=== PATIENT | male | born 1955 | race African-American/Black ===

== ENCOUNTER 2017-03-10 14:22 | Inpatient (IN) | payer OTHER ==
[2017-03-10 16:36] VITALS: BMI 25.0
--- NOTE | 2017-03-10 19:45 | HP ---
CIWA Score - CIWA Score Nausea/Vomitin Muscle Tremors: 4-Moderate,w/Arms Extend Anxiety: 4-Mod. Anxious/Guarded Agitation: 4-Moderately Restless Paroxysmal Sweats: 1-Minimal Palms Moist Orientation: 0-Oriented Tacttile Disturbances: 0-None Auditory Disturbances: 0-None Visual Disturbances: 0-None Headache: 0-None Present CIWA-Ar Total Score: 15 Admission ROS BHS - HPI Chief Complaint: withdrawal sx Allergies/Adverse Reactions: Allergies Allergy/AdvReac Type Severity Reaction Status Date / Time Penicillins Allergy Intermediate Verified 03/10/17 18:13 History of Present Illness: 61 years old male with long history of alcohol nicotine dependence has hypertension diabetes ii asthma gerd positive ppd neuropathy denies mental illness is admitted to detox Exam Limitations: No Limitations - Ebola screening Have you traveled outside of the country in the last 21 days: No Have you had contact with anyone from an Ebola affected area: No Have you been sick,other than usual withdrawal symptoms: No Do you have a fever: No - Review of Systems Constitutional: Changes in sleep, Weight Stable EENT: reports: Blurred Vision (reading eye glasses), Dental Problems (upper and lower denture) Respiratory: reports: SOB with Exertion, Productive cough (white thick) Cardiac: reports: No Symptoms Reported GI: reports: Nausea, Poor Fluid Intake, Indigestion, Abdominal cramping : reports: No Symptoms Reported Musculoskeletal: reports: No Symptoms Reported Integumentary: reports: No Symptoms Reported Neuro: reports: Tremors Endocrine: reports: No Symptoms Reported Hematology: reports: No Symptoms Reported Psychiatric: reports: Judgement Intact Other Systems: Reviewed and Negative Patient History - Patient Medical History Hx Anemia: No Hx Asthma: Yes Hx Chronic Obstructive Pulmonary Disease (COPD): Yes Hx Cancer: No Hx Cardiac Disorders: No Hx Congestive Heart Failure: No Hx Hypertension: Yes Hx Hypercholesterolemia: No Hx Pacemaker: No HX Cerebrovascular Accident: No Hx Seizures: No Hx Dementia: No Hx Diabetes: Yes Hx Gastrointestinal Disorders: Yes (acid reflux) Hx Liver Disease: No Hx Genitourinary Disorders: No Hx Sexually Transmitted Disorders: No Hx Renal Disease (ESRD): No Hx Thyroid Disease: No Hx Human Immunodeficiency Virus (HIV): No (07/22 LAST NEGATIVE) Hx Hepatitis C: Yes Hx Depression: No Hx Suicide Attempt: No Hx Bipolar Disorder: No Hx Schizophrenia: No - Patient Surgical History Past Surgical History: Yes Hx Neurologic Surgery: No Hx Cataract Extraction: No Hx Cardiac Surgery: No Hx Lung Surgery: No Hx Breast Surgery: No Hx Breast Biopsy: No Hx Abdominal Surgery: No Hx Appendectomy: No Hx Cholecystectomy: No Hx Genitourinary Surgery: No Hx Orthopedic Surgery: No Other Surgical History: right inguinal hernia repair Anesthesia Reaction: No - PPD History Previous Implant?: Yes Documented Results: Positive w/o proof Implanted On Prior [facility] Admission?: No PPD to be Administered?: No - Smoking Cessation Smoking history: Current every day smoker Have you smoked in the past 12 months: Yes Aproximately how many cigarettes per day: 10 Hx Chewing Tobacco Use: No Initiated information on smoking cessation: No 'Breaking Loose' booklet given: 03/10/17 - Substance & Tx. History Hx Alcohol Use: Yes Hx Substance Use: No Substance Use Type: Alcohol Hx Substance Use Treatment: Yes (05/08-05/13/16 [facility] - Substances Abused Alcohol Route: Oral Frequency: Daily Amount used: LIQUOR- 3 PINTS Age of first use: 20 Date of Last Use: 03/10/17 Family Disease History - Family Disease History Family Disease History: Diabetes: Mother (), Heart Disease: Mother, Other: Father (/killed), Mother Other Family History: only child Admission Physical Exam S - Vital Signs Vital Signs: Vital Signs - 24 hr 03/10/17 16:35 Temperature 97 F L Pulse Rate 101 H Respiratory 20 Rate Blood Pressure 139/86 - Physical General Appearance: Yes: Appropriately Dressed, Mild Distress, Alcohol on Breath , Tremorous, Irritable, Sweating, Anxious HEENTM: Yes: Hearing grossly Normal, Normal ENT Inspection, Normocephalic, Normal Voice Respiratory: Yes: Chest Non-Tender, No Respiratory Distress, No Accessory Muscle Use, Wheezing, Hyperresonant Neck: Yes: Supple, Trachea in good position Breast: Yes: Breasts Symetrical Cardiology: Yes: Regular Rhythm, S1, S2, Tachycardia Abdominal: Yes: Non Tender, Soft Genitourinary: Yes: Within Normal Limits Back: Yes: Normal Inspection Musculoskeletal: Yes: full range of Motion, Gait Steady, Muscle Pain (legs) Extremities: Yes: Normal Inspection, Normal Range of Motion, Non-Tender, Tremors Neurological: Yes: Alert, Motor Strength 5/5, Normal Mood/Affect, Normal Response Integumentary: Yes: Warm Lymphatic: Yes: Within Normal Limits - Diagnostic (1) Alcohol dependence with uncomplicated withdrawal Current Visit: Yes Status: Acute (2) Asthma Current Visit: Yes Status: Chronic Qualifiers: Asthma severity: moderate Asthma complication type: with status asthmaticus Qualified Code(s): - (3) HTN (hypertension) Current Visit: Yes Status: Chronic Qualifiers: Hypertension type: essential hypertension Qualified Code(s): I10 - Essential (primary) hypertension; I10 - Essential (primary) hypertension; I10 - Essential (primary) hypertension (4) Hepatitis C Current Visit: Yes Status: Resolved Qualifiers: Viral hepatitis chronicity: chronic Hepatic coma status: without hepatic coma Qualified Code(s): B18.2 - Chronic viral hepatitis C; B18.2 - Chronic viral hepatitis C; B18.2 - Chronic viral hepatitis C; B18.2 - Chronic viral hepatitis C (5) Nicotine dependence Current Visit: Yes Status: Acute Qualifiers: Nicotine product type: cigarettes Substance use status: in withdrawal Qualified Code(s): F17.213 - Nicotine dependence, cigarettes, with withdrawal; F17.213 - Nicotine dependence, cigarettes, with withdrawal (6) GERD (gastroesophageal reflux disease) Current Visit: Yes Status: Chronic Qualifiers: Esophagitis presence: without esophagitis Qualified Code(s): K21.9 - Gastro-esophageal reflux disease without esophagitis; K21.9 - Gastro- esophageal reflux disease without esophagitis; K21.9 - Gastro-esophageal reflux disease without esophagitis (7) COPD (chronic obstructive pulmonary disease) Current Visit: Yes Status: Chronic Qualifiers: COPD type: emphysema Emphysema type: unilateral Qualified Code(s ): J43.0 - Unilateral pulmonary emphysema [MacLeod's syndrome]; J43.0 - Unilateral pulmonary emphysema [MacLeod's syndrome]; J43.0 - Unilateral pulmonary emphysema [MacLeod's syndrome]; J43.0 - Unilateral pulmonary emphysema [MacLeod's syndrome] (8) Positive PPD, treated Current Visit: Yes Status: Resolved Cleared for Admission BHS - Detox or Rehab BHS Level of Care: Medically Managed Detox Regimen/Protocol: Valium BHS Breath Alcohol Content Breath Alcohol Content: 0.171 Urine Drug Screen - Results Drug Screen Negative: Yes
[2017-03-10] MEDS ORDERED: guaiFENesin/D-METHORPHAN HB 10 ML UNIT-DOSE CUPS PO PRN (19:54)
[2017-03-10] MEDS ORDERED: LOPERAMIDE HCL 2 MG CAPSULE PO PRN (19:54)
[2017-03-10] MEDS ORDERED: diphenhydrAMINE HCL 50 MG CAPSULE PO PRN (19:54)
[2017-03-10] MEDS ORDERED: MENTHOL/PHENOL 1 EACH UD MM PRN (19:54)
[2017-03-10] MEDS ORDERED: diazePAM 5 MG TABLET PO ONE (19:54)
[2017-03-10] MEDS ORDERED: P-EPHED 60MG/TRIPROLIDI 2.5MG TABLET PO PRN (19:54)
[2017-03-10] MEDS ORDERED: MAGNESIUM CITRATE 300 ML BOTTLE PO PRN (19:54)
[2017-03-10] MEDS ORDERED: ACETAMINOPHEN 325 MG TABLET (FP) PO PRN (19:54)
[2017-03-10] MEDS ORDERED: MAGNESIUM HYDROX 2400MG/30ML ORAL SUSPENSION 30 ML CUP PO PRN (19:54)
[2017-03-10] MEDS ORDERED: ALBUTEROL SO4 2.5/IPRATROPIUM 0.5 INH SOL 3 ML VIAL.NEB. NEB PRN (19:55)
[2017-03-10] MEDS ORDERED: GABAPENTIN 300 MG CAPSULE (FP) PO SCH (22:00)
[2017-03-10] MEDS: BUDESONIDE/FORMETEROL FUMARATE 80/4.5 mcg INHALER IH SCH (23:01)
[2017-03-10] MEDS: GABAPENTIN 400 MG CAPSULE (FP) PO SCH (23:06)
[2017-03-10] MEDS: THIAMINE HCL 100 MG TABLET (FP) PO SCH (23:07)
[2017-03-10] MEDS: diazePAM 5 MG TABLET PO SCH (23:07)
[2017-03-10] MEDS: RANITIDINE HCL 150 MG TABLET (FP) PO SCH (23:08)
[2017-03-11] LABS: URINE APPEARANCE SLCLOUDY; URINE BILIRUBIN NEGATIVE (NEGATIVE); URINE BLOOD NEGATIVE (NEGATIVE); URINE COLOR AMBER; URINE GLUCOSE (UA) NEGATIVE (NEGATIVE); URINE KETONE NEGATIVE (NEGATIVE); URINE LEUK ESTERASE NEGATIVE (NEGATIVE); URINE NITRITE NEGATIVE (NEGATIVE); URINE PROTEIN 1+ (NEGATIVE); URINE UROBILINOGEN 4.0 E.U/dl mg/dL (0.2-1.0)
[2017-03-11 00:02] LABS: URINE RBC 1 /hpf (0-3); URINE WBC 1 /hpf (3-5)
[2017-03-11] MEDS: diazePAM 5 MG TABLET PO SCH ×3 (05:51→22:29)
[2017-03-11 10:12] LABS: MCH 23.9 pg (25.7-33.7); MCHC 30.2 g/dl (32.0-35.9); MEAN CELL VOLUME 79.1 fl (80-96); MEAN PLT VOLUME 9.4 fl (7.5-11.1); PLATELET COUNT 215 K/MM3 (134-434); WHITE BLOOD COUNT 4.7 K/mm3 (4.0-10.0)
[2017-03-11] MEDS: PRENATAL VITAMINS W/ FOLIC ACID TABLET (FP) PO SCH (10:12)
[2017-03-11] MEDS: RANITIDINE HCL 150 MG TABLET (FP) PO SCH ×2 (10:12→22:29)
[2017-03-11] MEDS: BUDESONIDE/FORMETEROL FUMARATE 80/4.5 mcg INHALER IH SCH ×2 (10:12→23:03)
[2017-03-11] MEDS: amLODIPine BESYLATE 5 MG TABLET (FP) PO SCH (10:12)
[2017-03-11] MEDS: ASPIRIN 81 MG CHEWABLE TABLETS PO SCH (10:12)
[2017-03-11] MEDS: LISINOPRIL 10 MG TABLET (FP) PO SCH (10:12)
[2017-03-11] MEDS: NICOTINE 14 MG/24 HOURS TOPICAL PATCH TD SCH (10:13)
[2017-03-11] MEDS: NICOTINE POLACRILEX 2 MG GUM BC PRN ×3 (10:16→18:16)
[2017-03-11] MEDS: diazePAM 5 MG TABLET PO PRN ×2 (10:17→15:13)
--- NOTE | 2017-03-11 10:27 | PN ---
S CIWA - CIWA Score Nausea/Vomitin-No Nausea/No Vomiting Muscle Tremors: 4-Moderate,w/Arms Extend Anxiety: 3 Agitation: 3 Paroxysmal Sweats: 3 Orientation: 0-Oriented Tacttile Disturbances: 0-None Auditory Disturbances: 0-None Visual Disturbances: 0-None Headache: 0-None Present CIWA-Ar Total Score: 13 BHS Progress Note (SOAP) Subjective: sweats interrupted sleep agitation mild shakes Objective: 03/11/17 10:26 Vital Signs Temperature 97.9 F 03/11/17 06:35 Pulse Rate 94 H 03/11/17 06:35 Respiratory Rate 20 03/11/17 06:35 Blood Pressure 160/93 03/11/17 06:35 O2 Sat by Pulse Oximetry (%) Laboratory Tests 03/10/17 03/10/17 03/11/17 18:19 23:45 05:53 WBC RBC Hgb Hct MCV MCH MCHC RDW Plt Count MPV POC Glucometer 111 128 Urine Color Alyson Urine Appearance Slcloudy Urine pH 6.0 Ur Specific [place] 1.015 Urine Protein 1+ H Urine Glucose (UA) Negative Urine Ketones Negative Urine Blood Negative Urine Nitrite Negative Urine Bilirubin Negative Urine Urobilinogen 4.0 e.u/dl Urine RBC 1 Urine WBC 1 Ur Epithelial Cells Rare 03/11/17 07:00 WBC 4.7 D RBC 3.86 L Hgb 9.2 L D Hct 30.5 L MCV 79.1 L MCH 23.9 L MCHC 30.2 L RDW 25.0 H D Plt Count 215 D MPV 9.4 POC Glucometer Urine Color Urine Appearance Urine pH Ur Specific [place] Urine Protein Urine Glucose (UA) Urine Ketones Urine Blood Urine Nitrite Urine Bilirubin Urine Urobilinogen Urine RBC Urine WBC Ur Epithelial Cells labs pending aaox3 ambulating no acute distress low H:H; iron sulfate tid ordered Assessment: 03/11/17 10:35 withdrawal sx Plan: continue detox increase fluids iron sulfated ordered
[2017-03-11 11:07] LABS: ALBUMIN 3.6 g/dl (3.4-5.0); ALK PHOS 128 U/L (45-117); ANION GAP 8 (8-16); BILIRUBIN,TOTAL 0.8 mg/dL (0.2-1.0); CO2 26 mmol/L (21-32); CREATININE 1.1 mg/dL (0.7-1.3); GLUCOSE,RANDOM 212 mg/dL (74-106); SGOT/AST 192 U/L (15-37); SGPT/ALT 197 U/L (12-78); TOT PROT 7.6 g/dl (6.4-8.2)
[2017-03-11 11:49] LABS: HIV 1 & 2 AB NEGATIVE; HIV 1 AGp24 NEGATIVE
[2017-03-11] MEDS: FERROUS SO4 325 MG TABLET (FP) PO SCH ×2 (12:51→18:16)
--- NOTE | 2017-03-11 14:21 | EKG ---
Test Reason : Blood Pressure : / mmHG Vent. Rate : 090 BPM Atrial Rate : 090 BPM P-R Int : 158 ms QRS Dur : 084 ms QT Int : 392 ms P-R-T Axes : 062 -16 034 degrees QTc Int : 479 ms NORMAL SINUS RHYTHM POSSIBLE LEFT ATRIAL ENLARGEMENT BORDERLINE ECG NO PREVIOUS ECGS AVAILABLE Confirmed by YANDEL EVANS, CHERELLE ([id number]) on 03/11/2017 2:21:16 PM Referred By: Carmelo Deleon Confirmed By:CHERELLE HUMPHRIES MD
[2017-03-11] MEDS: GABAPENTIN 400 MG CAPSULE (FP) PO SCH (22:28)
[2017-03-11] MEDS: THIAMINE HCL 100 MG TABLET (FP) PO SCH (22:29)
[2017-03-12] MEDS: diazePAM 5 MG TABLET PO PRN ×3 (05:12→17:49)
[2017-03-12] MEDS: NICOTINE POLACRILEX 2 MG GUM BC PRN ×5 (05:13→17:48)
[2017-03-12] MEDS: metFORMIN HCL 500 MG TABLET (FP) PO SCH ×2 (07:40→17:48)
[2017-03-12] MEDS: FERROUS SO4 325 MG TABLET (FP) PO SCH ×3 (07:41→17:48)
[2017-03-12] MEDS ORDERED: valACYclovir HCL 1000 MG TABLET PO SCH (10:00)
[2017-03-12] MEDS: RANITIDINE HCL 150 MG TABLET (FP) PO SCH ×2 (10:04→22:21)
[2017-03-12] MEDS: LISINOPRIL 10 MG TABLET (FP) PO SCH (10:04)
[2017-03-12] MEDS: PRENATAL VITAMINS W/ FOLIC ACID TABLET (FP) PO SCH (10:04)
[2017-03-12] MEDS: amLODIPine BESYLATE 5 MG TABLET (FP) PO SCH (10:04)
[2017-03-12] MEDS: ASPIRIN 81 MG CHEWABLE TABLETS PO SCH (10:04)
[2017-03-12] MEDS: diazePAM 5 MG TABLET PO SCH ×2 (10:04→22:21)
[2017-03-12] MEDS: BUDESONIDE/FORMETEROL FUMARATE 80/4.5 mcg INHALER IH SCH ×2 (10:05→23:39)
[2017-03-12] MEDS: valACYclovir HCL 500 MG TABLET (FP) PO SCH ×2 (10:05→22:21)
[2017-03-12] MEDS: NICOTINE 14 MG/24 HOURS TOPICAL PATCH TD SCH (10:06)
[2017-03-12] MEDS: ALBUTEROL SO4 18 GM HFA INHALER IH PRN (10:08)
--- NOTE | 2017-03-12 11:26 | PN ---
[facility] CIWA - CIWA Score Nausea/Vomitin-No Nausea/No Vomiting Muscle Tremors: 3 Anxiety: 2 Agitation: 3 Paroxysmal Sweats: 3 Orientation: 0-Oriented Tacttile Disturbances: 0-None Auditory Disturbances: 0-None Visual Disturbances: 0-None Headache: 0-None Present CIWA-Ar Total Score: 11 [facility] Progress Note (SOAP) Subjective: cold sore on lip sweats interrupted sleep Objective: 03/12/17 11:23 Vital Signs Temperature 98.6 F 03/12/17 10:00 Pulse Rate 93 H 03/12/17 10:00 Respiratory Rate 18 03/12/17 10:00 Blood Pressure 128/82 03/12/17 10:00 O2 Sat by Pulse Oximetry (%) Laboratory Tests 03/10/17 03/10/17 03/11/17 18:19 23:45 05:53 WBC RBC Hgb Hct MCV MCH MCHC RDW Plt Count MPV Sodium Potassium Chloride Carbon Dioxide Anion Gap BUN Creatinine Creat Clearance w eGFR POC Glucometer 111 128 Random Glucose Calcium Total Bilirubin AST ALT Alkaline Phosphatase Total Protein Albumin Urine Color Alyson Urine Appearance Slcloudy Urine pH 6.0 Ur Specific [place] 1.015 Urine Protein 1+ H Urine Glucose (UA) Negative Urine Ketones Negative Urine Blood Negative Urine Nitrite Negative Urine Bilirubin Negative Urine Urobilinogen 4.0 e.u/dl Urine RBC 1 Urine WBC 1 Ur Epithelial Cells Rare RPR Titer HIV 1&2 Antibody Screen HIV P24 Antigen 03/11/17 03/11/17 03/11/17 07:00 07:00 07:00 WBC 4.7 D RBC 3.86 L Hgb 9.2 L D Hct 30.5 L MCV 79.1 L MCH 23.9 L MCHC 30.2 L RDW 25.0 H D Plt Count 215 D MPV 9.4 Sodium 139 Potassium 4.0 Chloride 105 Carbon Dioxide 26 Anion Gap 8 BUN 9 D Creatinine 1.1 Creat Clearance w eGFR > 60 POC Glucometer Random Glucose 212 H D Calcium 9.0 Total Bilirubin 0.8 AST 192 H D ALT 197 H D Alkaline Phosphatase 128 H D Total Protein 7.6 Albumin 3.6 Urine Color Urine Appearance Urine pH Ur Specific [place] Urine Protein Urine Glucose (UA) Urine Ketones Urine Blood Urine Nitrite Urine Bilirubin Urine Urobilinogen Urine RBC Urine WBC Ur Epithelial Cells RPR Titer HIV 1&2 Antibody Screen Negative HIV P24 Antigen Negative 03/11/17 03/11/17 03/12/17 07:00 16:42 07:28 WBC RBC Hgb Hct MCV MCH MCHC RDW Plt Count MPV Sodium Potassium Chloride Carbon Dioxide Anion Gap BUN Creatinine Creat Clearance w eGFR POC Glucometer 159 213 Random Glucose Calcium Total Bilirubin AST ALT Alkaline Phosphatase Total Protein Albumin Urine Color Urine Appearance Urine pH Ur Specific [place] Urine Protein Urine Glucose (UA) Urine Ketones Urine Blood Urine Nitrite Urine Bilirubin Urine Urobilinogen Urine RBC Urine WBC Ur Epithelial Cells RPR Titer Nonreactive HIV 1&2 Antibody Screen HIV P24 Antigen AAOx3 ambulating no acute distress Assessment: 03/12/17 11:24 withdrawal sx Plan: continue detox increase fluids valcyte 500mg bid x 7 days
--- NOTE | 2017-03-12 17:35 | CONSULT ---
[facility] Psychiatric Consult - Data Date of interview: 03/12/17 Admission source: [facility] Identifying data: Patient refuses psychiatric evaluation.Nursing staff is made aware.
[2017-03-12] MEDS: MAG HYDROX/AL HYDROX/SIMETH 30 ML UNIT-DOSE CUP PO PRN (21:00)
[2017-03-12] MEDS: THIAMINE HCL 100 MG TABLET (FP) PO SCH (22:20)
[2017-03-12] MEDS: GABAPENTIN 400 MG CAPSULE (FP) PO SCH (22:21)
[2017-03-13] MEDS: NICOTINE POLACRILEX 2 MG GUM BC PRN ×4 (02:36→22:36)
[2017-03-13] MEDS: diazePAM 5 MG TABLET PO PRN ×3 (02:43→16:56)
[2017-03-13] MEDS: MAG HYDROX/AL HYDROX/SIMETH 30 ML UNIT-DOSE CUP PO PRN ×3 (05:54→18:44)
[2017-03-13] MEDS: ALBUTEROL SO4 18 GM HFA INHALER IH PRN ×2 (05:55→22:35)
[2017-03-13] MEDS: metFORMIN HCL 500 MG TABLET (FP) PO SCH ×2 (07:56→16:56)
[2017-03-13] MEDS: FERROUS SO4 325 MG TABLET (FP) PO SCH ×3 (07:56→16:56)
[2017-03-13] MEDS: diazePAM 5 MG TABLET PO SCH ×2 (10:16→22:35)
[2017-03-13] MEDS: PRENATAL VITAMINS W/ FOLIC ACID TABLET (FP) PO SCH (10:16)
[2017-03-13] MEDS: BUDESONIDE/FORMETEROL FUMARATE 80/4.5 mcg INHALER IH SCH ×2 (10:16→22:35)
[2017-03-13] MEDS: amLODIPine BESYLATE 5 MG TABLET (FP) PO SCH (10:16)
[2017-03-13] MEDS: valACYclovir HCL 500 MG TABLET (FP) PO SCH ×2 (10:16→22:35)
[2017-03-13] MEDS: LISINOPRIL 10 MG TABLET (FP) PO SCH ×2 (10:16→22:35)
[2017-03-13] MEDS: ASPIRIN 81 MG CHEWABLE TABLETS PO SCH (10:16)
[2017-03-13] MEDS: RANITIDINE HCL 150 MG TABLET (FP) PO SCH ×2 (10:16→22:35)
[2017-03-13] MEDS: NICOTINE 14 MG/24 HOURS TOPICAL PATCH TD SCH (10:18)
--- NOTE | 2017-03-13 11:04 | PN ---
BHS Progress Note (SOAP) Subjective: Sweating,interrupted sleep,restless. Pt. is concerned about elevated BP, we'll increase lisinopril to bid Objective: 03/13/17 11:02 Vital Signs - 8 hr 03/13/17 03/13/17 06:00 10:00 Temperature 97.7 F 98.2 F Pulse Rate 95 H 99 H Respiratory 18 18 Rate Blood Pressure 138/87 141/75 Laboratory Last Values WBC 4.7 K/mm3 (4.0-10.0) D 03/11/17 07:00 RBC 3.86 M/mm3 (4.00-5.60) L 03/11/17 07:00 Hgb 9.2 GM/dL (11.7-16.9) L D 03/11/17 07:00 Hct 30.5 % (35.4-49) L 03/11/17 07:00 MCV 79.1 fl (80-96) L 03/11/17 07:00 MCH 23.9 pg (25.7-33.7) L 03/11/17 07:00 MCHC 30.2 g/dl (32.0-35.9) L 03/11/17 07:00 RDW 25.0 % (11.9-15.9) H D 03/11/17 07:00 Plt Count 215 K/MM3 (134-434) D 03/11/17 07:00 MPV 9.4 fl (7.5-11.1) 03/11/17 07:00 Sodium 139 mmol/L (136-145) 03/11/17 07:00 Potassium 4.0 mmol/L (3.5-5.1) 03/11/17 07:00 Chloride 105 mmol/L (98-107) 03/11/17 07:00 Carbon Dioxide 26 mmol/L (21-32) 03/11/17 07:00 Anion Gap 8 (8-16) 03/11/17 07:00 BUN 9 mg/dL (7-18) D 03/11/17 07:00 Creatinine 1.1 mg/dL (0.7-1.3) 03/11/17 07:00 Creat Clearance w eGFR > 60 (>60) 03/11/17 07:00 POC Glucometer 108 UNITS (()) 03/13/17 05:44 Random Glucose 212 mg/dL (74-106) H D 03/11/17 07:00 Calcium 9.0 mg/dL (8.5-10.1) 03/11/17 07:00 Total Bilirubin 0.8 mg/dL (0.2-1.0) 03/11/17 07:00 AST 192 U/L (15-37) H D 03/11/17 07:00 ALT 197 U/L (12-78) H D 03/11/17 07:00 Alkaline Phosphatase 128 U/L (45-117) H D 03/11/17 07:00 Total Protein 7.6 g/dl (6.4-8.2) 03/11/17 07:00 Albumin 3.6 g/dl (3.4-5.0) 03/11/17 07:00 Urine Color Alyson 03/10/17 23:45 Urine Appearance Slcloudy 03/10/17 23:45 Urine pH 6.0 (5.0-8.0) 03/10/17 23:45 Ur Specific [place] 1.015 (1.005-1.025) 03/10/17 23:45 Urine Protein 1+ (NEGATIVE) H 03/10/17 23:45 Urine Glucose (UA) Negative (NEGATIVE) 03/10/17 23:45 Urine Ketones Negative (NEGATIVE) 03/10/17 23:45 Urine Blood Negative (NEGATIVE) 03/10/17 23:45 Urine Nitrite Negative (NEGATIVE) 03/10/17 23:45 Urine Bilirubin Negative (NEGATIVE) 03/10/17 23:45 Urine Urobilinogen 4.0 e.u/dl mg/dL (0.2-1.0) 03/10/17 23:45 Urine RBC 1 /hpf (0-3) 03/10/17 23:45 Urine WBC 1 /hpf (3-5) 03/10/17 23:45 Ur Epithelial Cells Rare /hpf (FEW) 03/10/17 23:45 RPR Titer Nonreactive (NONREACTIVE) 03/11/17 07:00 HIV 1&2 Antibody Screen Negative 03/11/17 07:00 HIV P24 Antigen Negative 03/11/17 07:00 labs noted,liver enzymes are elevated Assessment: 03/13/17 11:03 Withdrawal sx. Plan: Continue detox
[2017-03-13] MEDS: GABAPENTIN 400 MG CAPSULE (FP) PO SCH (22:35)
[2017-03-13] MEDS: THIAMINE HCL 100 MG TABLET (FP) PO SCH (22:35)
[2017-03-14] MEDS: metFORMIN HCL 500 MG TABLET (FP) PO SCH (07:35)
[2017-03-14] MEDS: FERROUS SO4 325 MG TABLET (FP) PO SCH (07:35)
--- NOTE | 2017-03-14 08:40 | DS ---
[facility] Detox Discharge Summary Admission Date: 03/10/17 Discharge Date: 03/14/17 - History Present History: Alcohol Dependence Additional Comments: FOLLOW UP WITH AFTER CARE PROGRAM ARRANGEMENT PATIENT HAS MEDICATIONS Pertinent Past History: ASTHMA COPD HYPERTENSION HEPATITIS C NICOTINE DEPENDENCE GERD POSITIVE PPD TREATED - Physical Exam Results Vital Signs: Vital Signs Temperature 98.1 F 03/14/17 06:00 Pulse Rate 84 03/14/17 06:00 Respiratory Rate 18 03/14/17 06:00 Blood Pressure 136/81 03/14/17 06:00 O2 Sat by Pulse Oximetry (%) Pertinent Admission Physical Exam Findings: WITHDRAWAL SYMPTOM - Treatment Hospital Course: Detox Protocol Followed, Detoxed Safely, Responded well, Discharged Condition Good, Rehab Referral Accepted Patient has Accepted a Rehab Referral to: [facility] - Medication Discharge Medications: Ambulatory Orders Gabapentin [Neurontin -] 300 mg PO TID 02/10/15 Benztropine Mesylate [Cogentin -] 0.5 mg PO BID #60 tablet 02/11/15 Amlodipine Besylate [Norvasc -] 5 mg PO DAILY #30 tablet 02/14/15 Diphenhydramine [Benadryl Capsule -] 50 mg PO HS #30 capsule 02/14/15 Famotidine 40 mg PO DAILY #30 tablet 02/14/15 Pravastatin Sodium [Pravachol -] 20 mg PO HS #30 tablet 02/14/15 Tamsulosin HCl [Flomax -] 0.4 mg PO HS #30 cap.er.24h 02/14/15 Albuterol Sulfate Inhaler - [Ventolin HFA Inhaler -] 2 inh IH Q4H PRN 05/08/16 Metformin HCl [Glucophage -] 500 mg PO BID 05/08/16 Risperidone [Risperdal -] 4 mg PO HS 05/08/16 - AMA Did Patient Leave Against Medical Advice: No
[2017-03-14] MEDS: amLODIPine BESYLATE 5 MG TABLET (FP) PO SCH (09:02)
[2017-03-14] MEDS: ASPIRIN 81 MG CHEWABLE TABLETS PO SCH (09:02)
[2017-03-14] MEDS: PRENATAL VITAMINS W/ FOLIC ACID TABLET (FP) PO SCH (09:02)
[2017-03-14] MEDS: valACYclovir HCL 500 MG TABLET (FP) PO SCH (09:02)
[2017-03-14] MEDS: RANITIDINE HCL 150 MG TABLET (FP) PO SCH (09:02)
[2017-03-14] MEDS: LISINOPRIL 10 MG TABLET (FP) PO SCH (09:02)
[2017-03-14] MEDS: NICOTINE 14 MG/24 HOURS TOPICAL PATCH TD SCH (09:03)
[2017-03-14] MEDS: BUDESONIDE/FORMETEROL FUMARATE 80/4.5 mcg INHALER IH SCH (09:03)
[2017-03-14] MEDS: MAG HYDROX/AL HYDROX/SIMETH 30 ML UNIT-DOSE CUP PO PRN (09:04)
[2017-03-14 10:00] VITALS: BP 123/76; PULSE 99; TEMP 97.3
[2017-03-14] MEDS ORDERED: diazePAM 5 MG TABLET PO SCH (10:00)
== END 2017-03-14 09:50 | disposition home or self-care (01) | DRG 775 ==
LOC: YASAS 14:22 → Y6N 18:56
PROVIDERS: ADMIT Internal Medicine; ATTEND Internal Medicine
PROC: HZ2ZZZZ Detoxification Services for Substance Abuse Treatment (ICD-10-PCS; principal; 2017-03-10)
DX: F10.230 Alcohol dependence with withdrawal, uncomplicated (principal); F17.210 Nicotine dependence, cigarettes, uncomplicated; F20.0 Paranoid schizophrenia; J45.42 Moderate persistent asthma with status asthmaticus; F43.0 Acute stress reaction; E78.00 Pure hypercholesterolemia, unspecified; E11.9 Type 2 diabetes mellitus without complications; K21.9 Gastro-esophageal reflux disease without esophagitis; I10 Essential (primary) hypertension; B18.2 Chronic viral hepatitis C; R76.11 Nonspecific reaction to tuberculin skin test without active tuberculosis; D50.9 Iron deficiency anemia, unspecified; G47.00 Insomnia, unspecified; Z79.84 Long term (current) use of oral hypoglycemic drugs; Z88.0 Allergy status to penicillin
CPT/HCPCS: 36415; 80053; 81003; 81015; 85027; 86593; 87389; 93005; 93010

== ENCOUNTER 2018-01-23 13:06 | Inpatient (IN) | payer OTHER ==
[2018-01-23 13:55] VITALS: BMI 24.5
--- NOTE | 2018-01-23 14:18 | HP ---
ELINA EVANS Rehab Assess/Revision - Admission History Ad[facility]: [facility] Date of Admission to Rehab: 01/23/18 - Vital signs Vital Signs: Vital Signs Period Temp Pulse Resp BP Sys/Melendez Pulse Ox Last 24 Hr 97.7 F 93 16 134/86 - Findings Detox History & Physical reviewed: Yes Concur with findings: Yes Comments/Additional Findings: for rehab as protocol Inpatient Rehab Admission - Initial Determination Are CD services needed?: Yes Free of communicable disease: Yes Not in need of hospitalization: Yes - Rehab Admission Criteria Previous failed treatment: Yes Poor recovery environment: Yes Comorbidities: Yes Lacks judgement: No Patient is meeting Inpatient Rehab admission criteria:: Yes
[2018-01-23] MEDS ORDERED: P-EPHED 60MG/TRIPROLIDI 2.5MG TABLET PO PRN (14:20)
[2018-01-23] MEDS ORDERED: MENTHOL/PHENOL 1 EACH UD MM PRN (14:20)
[2018-01-23] MEDS ORDERED: ACETAMINOPHEN 325 MG TABLET (FP) PO PRN (14:20)
[2018-01-23] MEDS ORDERED: IBUPROFEN 400 MG TABLET (FP) PO PRN (14:20)
[2018-01-23] MEDS ORDERED: guaiFENesin/D-METHORPHAN HB 10 ML UNIT-DOSE CUPS PO PRN (14:20)
[2018-01-23] MEDS ORDERED: MAGNESIUM HYDROX 2400MG/30ML ORAL SUSPENSION 30 ML CUP PO PRN (14:20)
[2018-01-23] MEDS ORDERED: MAGNESIUM CITRATE 300 ML BOTTLE PO PRN (14:20)
[2018-01-23] MEDS ORDERED: LOPERAMIDE HCL 2 MG CAPSULE PO PRN (14:20)
[2018-01-23] MEDS ORDERED: ALBUTEROL SO4 8 GM HFA INHALER IH PRN (14:22)
[2018-01-23] MEDS: NICOTINE 21 MG/24 HOURS TOPICAL PATCH TD SCH (15:43)
[2018-01-23] MEDS: CYCLOBENZAPRINE HCL 10 MG TABLET (FP) PO PRN (16:53)
[2018-01-23] MEDS: MAG HYDROX/AL HYDROX/SIMETH 30 ML UNIT-DOSE CUP PO PRN (17:12)
--- NOTE | 2018-01-23 17:27 | PN ---
S Progress Note Note: Psychiatric nurse practitioner council on aging director note: Call received by RN requesting patient's medications. Chart reviewed. Will order gabapentin 600mg TID.
[2018-01-23] MEDS ORDERED: glipiZIDE 10 MG TABLET (FP) PO ONE (17:40)
[2018-01-23] MEDS: GABAPENTIN 300 MG CAPSULE (FP) PO SCH (21:17)
[2018-01-23] MEDS: TAMSULOSIN HCL 0.4 MG CAP.ER.24H (FP) PO SCH (21:17)
[2018-01-23] MEDS: THIAMINE HCL 100 MG TABLET (FP) PO SCH (21:18)
[2018-01-23] MEDS: cloNIDine HCL 0.1 MG TABLET PO SCH (21:18)
[2018-01-23] MEDS: ATORVASTATIN CA 40 MG TABLET (FP) PO SCH (21:18)
[2018-01-23] MEDS: BUDESONIDE/FORMETEROL FUMARATE 160/4.5 mcg INHALER IH SCH (21:18)
[2018-01-23] MEDS ORDERED: glipiZIDE 10 MG TABLET (FP) PO SCH (22:00)
[2018-01-24] MEDS: GABAPENTIN 300 MG CAPSULE (FP) PO SCH ×3 (07:59→21:40)
[2018-01-24] MEDS: glipiZIDE 10 MG TABLET (FP) PO SCH ×2 (07:59→17:05)
[2018-01-24] MEDS: MAG HYDROX/AL HYDROX/SIMETH 30 ML UNIT-DOSE CUP PO PRN ×2 (08:04→14:35)
--- NOTE | 2018-01-24 08:26 | HP ---
Psychiatrist Admission - Data Date of interview: 01/24/18 Admission source: [facility] Identifying data: This is the second [facility] for this 62 years old single Black male, unemployed om SSI, homeless Medical History: Significant for bronchial asthma, hypertension, dyslipidemia, type 2 diabetes mellitus, diabetic neuropathy, GERD, hepatitis C, benigh prostatic hyperplasia, history of treatment for syphilis and surgery for right inguinal herniorraphy. Smokes 10 cigarettes daily Psychiatric History: Patient was reluctant to provide information about his psychiatric history. He was recently seen by Dr Diaz on 01/22/18 while in detox. He is diagnosed with Paranoid Schizophrenia and has had history of multiple psychiatric hospitalizations ([facility] and various other facilities ). He is non-compliant with OPD care and medications but in the past he had OPD care at [facility] and was prescribed Risperdal, Cogentin, Celexa. Patient declines to resume psychotropic medications to the exception of Atarax for insomnia. Denies history of suicide attempts. He is very irritable at present Physical/Sexual Abuse/Trauma History: Denies history of emotional, physical or sexual abuse, but reports being bullied as a child by peers in school. Served in the [employer] from to , in [place]; received dishonorable discharge for drinking, drug use, leaving AWOL. Additional Comment: Reports history of multiple previous arrests including one felony conviction Vital Signs: Vital Signs - 24 hr 01/23/18 01/24/18 01/24/18 13:48 00:30 03:30 Temperature 97.7 F Pulse Rate 93 H Respiratory 16 20 18 Rate Blood Pressure 134/86 01/24/18 07:15 Temperature 99.4 F Pulse Rate 98 H Respiratory 18 Rate Blood Pressure 119/78 Allergies/Adverse Reactions: Allergies Allergy/AdvReac Type Severity Reaction Status Date / Time Penicillins Allergy Severe diarrhea Verified 01/19/18 12:31 Date of last physical exam: 01/19/18 Concur with the findings of this exam: Yes - Substance Abuse/Tx History Hx Alcohol Use: Yes Hx Substance Use: No Substance Use Type: Alcohol (Started drinking alcohol at age 15, consumes 4 pints of vodka daily. Last drank on 01/19/18) Hx Substance Use Treatment: Yes (6 previous inpt detox & one inpt rehab @ [facility]) Mental Status Exam - Mental Status Exam Alert and Oriented to: Time, Place, Person Cognitive Function: Fair Patient Appearance: Well Groomed Mood: Irritable Affect: Appropriate Patient Behavior: Cooperative Voice Loudness: Normal Thought Process: Intact Thought Disorder: Not Present Hallucinations: Denies Suicidal Ideation: Denies Homicidal Ideation: Denies Insight/Judgement: Fair Sleep: Poorly Appetite: Poor Muscle strength/Tone: Normal Gait/Station: Normal Psychiatric Findings - Problem List (Procious 1, 2,3) (1) Alcohol dependence Current Visit: Yes Status: Acute (2) Nicotine dependence Current Visit: No Status: Chronic Qualifiers: Nicotine product type: cigarettes Substance use status: in withdrawal Qualified Code(s): F17.213 - Nicotine dependence, cigarettes, with withdrawal (3) Paranoid schizophrenia Current Visit: No Status: Chronic Comment: Refuses to accept medications. (4) Alcohol-induced mood disorder Current Visit: Yes Status: Acute (5) Alcohol-induced sleep disorder Current Visit: Yes Status: Acute (6) Anemia Current Visit: No Status: Chronic Qualifiers: Anemia type: iron deficiency (7) Asthma Current Visit: No Status: Chronic Qualifiers: Asthma severity: moderate Asthma persistence: unspecified Asthma complication type: unspecified Qualified Code(s): J45.909 - Unspecified asthma , uncomplicated (8) COPD (chronic obstructive pulmonary disease) Current Visit: No Status: Chronic Qualifiers: COPD type: emphysema Emphysema type: unilateral Qualified Code(s): J43.0 - Unilateral pulmonary emphysema [MacLeod's syndrome] (9) DM2 (diabetes mellitus, type 2) Current Visit: No Status: Chronic Qualifiers: Diabetes mellitus extermination supervisor insulin use: without snf use Diabetes mellitus complication status: with unspecified complications Qualified Code(s) : E11.8 - Type 2 diabetes mellitus with unspecified complications (10) GERD (gastroesophageal reflux disease) Current Visit: No Status: Chronic Qualifiers: Esophagitis presence: esophagitis presence not specified Qualified Code(s) : K21.9 - Gastro-esophageal reflux disease without esophagitis (11) HTN (hypertension) Current Visit: No Status: Chronic Qualifiers: Hypertension type: essential hypertension Qualified Code(s): I10 - Essential (primary) hypertension (12) Hypercholesterolemia Current Visit: No Status: Chronic - Initial Treatment Plan Initial Treatment Plan: 1) Start Atarax 25 mg po HS. 2) Monitor progress
[2018-01-24] MEDS ORDERED: PANTOPRAZOLE 20 MG TABLET (FP) PO SCH ×2 (10:00→12:56)
[2018-01-24] MEDS: NIFEdipine E.R. 30 MG TABLET (FP) PO SCH (10:24)
[2018-01-24] MEDS: FINASTERIDE 5 MG TABLET (FP) PO SCH (10:24)
[2018-01-24] MEDS: cloNIDine HCL 0.1 MG TABLET PO SCH ×2 (10:25→21:40)
[2018-01-24] MEDS: PRENATAL VITAMINS W/ FOLIC ACID TABLET (FP) PO SCH (10:25)
[2018-01-24] MEDS: ASPIRIN COATED 81 MG TABLET.EC PO SCH (10:25)
[2018-01-24] MEDS: CLOPIDOGREL BISULFATE 75 MG TABLET (FP) PO SCH (10:26)
[2018-01-24] MEDS: NICOTINE POLACRILEX 2 MG GUM BUC PRN ×4 (10:31→21:41)
[2018-01-24] MEDS: NICOTINE 21 MG/24 HOURS TOPICAL PATCH TD SCH (10:31)
[2018-01-24] MEDS: BUDESONIDE/FORMETEROL FUMARATE 160/4.5 mcg INHALER IH SCH ×2 (10:37→21:40)
--- NOTE | 2018-01-24 13:01 | PN ---
[facility] Progress Note Note: Vital Signs Temperature 99.4 F 01/24/18 07:15 Pulse Rate 98 H 01/24/18 07:15 Respiratory Rate 18 01/24/18 07:15 Blood Pressure 119/78 01/24/18 07:15 O2 Sat by Pulse Oximetry (%) patietn evaluated by heavy repairer recommend glucerna 120 PO BID, ordered as per recommendation patient c/o of acid reflux reports protonix 40 mg currently does not relief symptoms. Suggested 20 mg BID, but patient reports better relief one time 20mg protonix for now low acidic diet continue to monitor
[2018-01-24] MEDS ORDERED: PANTOPRAZOLE 20 MG TABLET (FP) PO ONE (13:45)
[2018-01-24] MEDS: ATORVASTATIN CA 40 MG TABLET (FP) PO SCH (21:40)
[2018-01-24] MEDS: THIAMINE HCL 100 MG TABLET (FP) PO SCH (21:40)
[2018-01-24] MEDS: TAMSULOSIN HCL 0.4 MG CAP.ER.24H (FP) PO SCH (21:40)
[2018-01-24] MEDS: CYCLOBENZAPRINE HCL 10 MG TABLET (FP) PO PRN (21:40)
[2018-01-25] MEDS: glipiZIDE 10 MG TABLET (FP) PO SCH ×2 (06:29→17:14)
[2018-01-25] MEDS: GABAPENTIN 300 MG CAPSULE (FP) PO SCH ×3 (06:29→21:54)
[2018-01-25] MEDS: NICOTINE POLACRILEX 2 MG GUM BUC PRN ×5 (06:31→21:58)
[2018-01-25] MEDS ORDERED: PANTOPRAZOLE 20 MG TABLET (FP) PO SCH (10:00)
[2018-01-25] MEDS: CLOPIDOGREL BISULFATE 75 MG TABLET (FP) PO SCH (10:44)
[2018-01-25] MEDS: PRENATAL VITAMINS W/ FOLIC ACID TABLET (FP) PO SCH (10:44)
[2018-01-25] MEDS: ASPIRIN COATED 81 MG TABLET.EC PO SCH (10:44)
[2018-01-25] MEDS: FINASTERIDE 5 MG TABLET (FP) PO SCH (10:44)
[2018-01-25] MEDS: BUDESONIDE/FORMETEROL FUMARATE 160/4.5 mcg INHALER IH SCH ×2 (10:45→21:55)
[2018-01-25] MEDS: cloNIDine HCL 0.1 MG TABLET PO SCH ×2 (10:45→21:54)
[2018-01-25] MEDS: NICOTINE 21 MG/24 HOURS TOPICAL PATCH TD SCH (10:45)
[2018-01-25] MEDS: NIFEdipine E.R. 30 MG TABLET (FP) PO SCH (10:46)
[2018-01-25] MEDS: MAG HYDROX/AL HYDROX/SIMETH 30 ML UNIT-DOSE CUP PO PRN (12:37)
--- NOTE | 2018-01-25 12:56 | PN ---
[facility] Progress Note Note: Vital Signs Temperature 97.8 F 01/25/18 07:07 Pulse Rate 93 H 01/25/18 10:00 Respiratory Rate 18 01/25/18 07:07 Blood Pressure 100/69 01/25/18 10:00 O2 Sat by Pulse Oximetry (%) Laboratory Last Values POC Glucometer 259 UNITS (80-120) 01/25/18 06:28 Patient c/o protonix currently does not work for current GERD meds changed to ranatidine 150mg BID low acidic diet elevated BGM BGM monitoring changed to TID, RN to call provider for elevated BGM increase fluids continue to monitor
--- NOTE | 2018-01-25 17:23 | PN ---
S Progress Note Note: Vital Signs Temperature 97.8 F 01/25/18 07:07 Pulse Rate 93 H 01/25/18 10:00 Respiratory Rate 18 01/25/18 07:07 Blood Pressure 100/69 01/25/18 10:00 O2 Sat by Pulse Oximetry (%) Laboratory Last Values POC Glucometer 259 UNITS (80-120) 01/25/18 06:28 Called received from JITENDRA sanders re: patients BGM 367 at this time. Patient only on oral glypizine. one time dose of novolog 4 units ordered increase fluids continue NCS diet continue to monitor
[2018-01-25] MEDS ORDERED: INSULIN (NOVOLOG) ASPART 100 UNITS/ML 10ML VIAL SQ ONE ×2 (17:45→22:10)
[2018-01-25] MEDS: THIAMINE HCL 100 MG TABLET (FP) PO SCH (21:54)
[2018-01-25] MEDS: RANITIDINE HCL 150 MG TABLET (FP) PO SCH (21:54)
[2018-01-25] MEDS: TAMSULOSIN HCL 0.4 MG CAP.ER.24H (FP) PO SCH (21:54)
[2018-01-25] MEDS: ATORVASTATIN CA 40 MG TABLET (FP) PO SCH (21:54)
[2018-01-25] MEDS: MELATONIN 5 MG TABLETS PO PRN (21:56)
[2018-01-25] MEDS: hydrOXYzine HCL 25 MG TABLET (FP) PO PRN (21:56)
[2018-01-26] MEDS: MAG HYDROX/AL HYDROX/SIMETH 30 ML UNIT-DOSE CUP PO PRN ×2 (05:08→15:24)
[2018-01-26] MEDS: GABAPENTIN 300 MG CAPSULE (FP) PO SCH ×3 (05:58→21:41)
[2018-01-26] MEDS: NICOTINE POLACRILEX 2 MG GUM BUC PRN ×4 (05:58→17:08)
[2018-01-26] MEDS: CLOPIDOGREL BISULFATE 75 MG TABLET (FP) PO SCH (05:59)
[2018-01-26] MEDS: glipiZIDE 10 MG TABLET (FP) PO SCH ×2 (06:11→17:06)
[2018-01-26] MEDS: ASPIRIN COATED 81 MG TABLET.EC PO SCH (10:40)
[2018-01-26] MEDS: RANITIDINE HCL 150 MG TABLET (FP) PO SCH ×2 (10:40→21:41)
[2018-01-26] MEDS: cloNIDine HCL 0.1 MG TABLET PO SCH ×2 (10:40→21:41)
[2018-01-26] MEDS: NIFEdipine E.R. 30 MG TABLET (FP) PO SCH (10:40)
[2018-01-26] MEDS: PRENATAL VITAMINS W/ FOLIC ACID TABLET (FP) PO SCH (10:40)
[2018-01-26] MEDS: FINASTERIDE 5 MG TABLET (FP) PO SCH (10:40)
[2018-01-26] MEDS: BUDESONIDE/FORMETEROL FUMARATE 160/4.5 mcg INHALER IH SCH ×2 (10:41→21:42)
[2018-01-26] MEDS: NICOTINE 21 MG/24 HOURS TOPICAL PATCH TD SCH (10:41)
[2018-01-26] MEDS ORDERED: INSULIN (NOVOLOG) ASPART 100 UNITS/ML 10ML VIAL SQ ONE (12:34)
--- NOTE | 2018-01-26 12:37 | PN ---
S Progress Note Note: Vital Signs Temperature 99.2 F 01/26/18 06:59 Pulse Rate 79 01/26/18 10:00 Respiratory Rate 18 01/26/18 06:59 Blood Pressure 131/77 01/26/18 10:00 O2 Sat by Pulse Oximetry (%) Laboratory Last Values POC Glucometer 262 UNITS (80-120) 01/26/18 05:57 BGM at this time 372, 6 units novolog ordered Patient with asymptomatic elevated BGM during stay, started on insulin sliding scale Hemoglobin A1C ordered Increase fluids NCS diet continue to monitor
[2018-01-26] MEDS: INSULIN SLIDING SCALE (NOVOLOG) 1 VIAL SQ SCH ×2 (17:07→21:44)
[2018-01-26] MEDS: THIAMINE HCL 100 MG TABLET (FP) PO SCH (21:41)
[2018-01-26] MEDS: hydrOXYzine HCL 25 MG TABLET (FP) PO PRN (21:41)
[2018-01-26] MEDS: TAMSULOSIN HCL 0.4 MG CAP.ER.24H (FP) PO SCH (21:41)
[2018-01-26] MEDS: ATORVASTATIN CA 40 MG TABLET (FP) PO SCH (21:41)
[2018-01-27] MEDS: NICOTINE POLACRILEX 2 MG GUM BUC PRN ×3 (01:20→17:02)
[2018-01-27] MEDS: glipiZIDE 10 MG TABLET (FP) PO SCH ×2 (06:19→17:01)
[2018-01-27] MEDS: CLOPIDOGREL BISULFATE 75 MG TABLET (FP) PO SCH (06:19)
[2018-01-27] MEDS ORDERED: INSULIN (NOVOLOG) ASPART 100 UNITS/ML 10ML VIAL ONE (06:22)
[2018-01-27] MEDS: MAG HYDROX/AL HYDROX/SIMETH 30 ML UNIT-DOSE CUP PO PRN ×2 (06:23→14:11)
[2018-01-27] MEDS: GABAPENTIN 300 MG CAPSULE (FP) PO SCH ×3 (07:15→21:53)
[2018-01-27] MEDS: INSULIN SLIDING SCALE (NOVOLOG) 1 VIAL SQ SCH ×4 (07:16→21:51)
[2018-01-27] MEDS: FINASTERIDE 5 MG TABLET (FP) PO SCH (10:47)
[2018-01-27] MEDS: NIFEdipine E.R. 30 MG TABLET (FP) PO SCH (10:47)
[2018-01-27] MEDS: PRENATAL VITAMINS W/ FOLIC ACID TABLET (FP) PO SCH (10:47)
[2018-01-27] MEDS: NICOTINE 21 MG/24 HOURS TOPICAL PATCH TD SCH (10:47)
[2018-01-27] MEDS: ASPIRIN COATED 81 MG TABLET.EC PO SCH (10:49)
[2018-01-27] MEDS: BUDESONIDE/FORMETEROL FUMARATE 160/4.5 mcg INHALER IH SCH ×2 (10:50→21:52)
[2018-01-27] MEDS: RANITIDINE HCL 150 MG TABLET (FP) PO SCH ×2 (10:50→21:53)
--- NOTE | 2018-01-27 14:17 | PN ---
[facility] Progress Note Note: Vital Signs Temperature 97.4 F L 01/27/18 07:07 Pulse Rate 93 H 01/27/18 10:00 Respiratory Rate 18 01/27/18 07:07 Blood Pressure 102/70 01/27/18 10:00 O2 Sat by Pulse Oximetry (%) Laboratory Last Values POC Glucometer 379 UNITS (80-120) 01/27/18 12:03 Hemoglobin A1c % 7.8 % (4.8-6.0) H D 01/27/18 07:40 Patient on sliding scale ACHS increase PO fluids continue to monitor
[2018-01-27] MEDS: ATORVASTATIN CA 40 MG TABLET (FP) PO SCH (21:53)
[2018-01-27] MEDS: THIAMINE HCL 100 MG TABLET (FP) PO SCH (21:53)
[2018-01-27] MEDS: TAMSULOSIN HCL 0.4 MG CAP.ER.24H (FP) PO SCH (21:53)
[2018-01-27] MEDS: hydrOXYzine HCL 25 MG TABLET (FP) PO PRN (21:54)
[2018-01-28] MEDS: MAG HYDROX/AL HYDROX/SIMETH 30 ML UNIT-DOSE CUP PO PRN ×3 (06:14→21:34)
[2018-01-28] MEDS: CLOPIDOGREL BISULFATE 75 MG TABLET (FP) PO SCH (06:15)
[2018-01-28] MEDS: glipiZIDE 10 MG TABLET (FP) PO SCH ×2 (06:15→16:37)
[2018-01-28] MEDS: GABAPENTIN 300 MG CAPSULE (FP) PO SCH ×3 (06:16→21:32)
[2018-01-28] MEDS: NICOTINE POLACRILEX 2 MG GUM BUC PRN ×5 (06:18→21:38)
[2018-01-28] MEDS: INSULIN SLIDING SCALE (NOVOLOG) 1 VIAL SQ SCH ×4 (07:35→21:32)
[2018-01-28] MEDS: NIFEdipine E.R. 30 MG TABLET (FP) PO SCH (10:38)
[2018-01-28] MEDS: PRENATAL VITAMINS W/ FOLIC ACID TABLET (FP) PO SCH (10:38)
[2018-01-28] MEDS: FINASTERIDE 5 MG TABLET (FP) PO SCH (10:38)
[2018-01-28] MEDS: RANITIDINE HCL 150 MG TABLET (FP) PO SCH ×2 (10:38→21:32)
[2018-01-28] MEDS: BUDESONIDE/FORMETEROL FUMARATE 160/4.5 mcg INHALER IH SCH ×2 (10:38→21:32)
[2018-01-28] MEDS: ASPIRIN COATED 81 MG TABLET.EC PO SCH (10:38)
[2018-01-28] MEDS: NICOTINE 21 MG/24 HOURS TOPICAL PATCH TD SCH (10:39)
[2018-01-28] MEDS ORDERED: INSULIN (NOVOLOG) ASPART 100 UNITS/ML 10ML VIAL ONE ×2 (12:07→17:03)
--- NOTE | 2018-01-28 12:46 | PN ---
[facility] Progress Note Note: uncontrolled dm,called pharmacist ,patient is on metformin 500 mgs po bid in will add metfornin 500 mgs po bid bgm monitoring with insulin coverage close monitoring
--- NOTE | 2018-01-28 12:56 | PN ---
S Progress Note Note: patient did not want metformin instead mention januvia 25 mgs po daily,
[2018-01-28] MEDS: TAMSULOSIN HCL 0.4 MG CAP.ER.24H (FP) PO SCH (21:32)
[2018-01-28] MEDS: THIAMINE HCL 100 MG TABLET (FP) PO SCH (21:32)
[2018-01-28] MEDS: ATORVASTATIN CA 40 MG TABLET (FP) PO SCH (21:32)
[2018-01-28] MEDS: MELATONIN 5 MG TABLETS PO PRN (21:35)
[2018-01-29] MEDS: glipiZIDE 10 MG TABLET (FP) PO SCH ×2 (06:35→16:53)
[2018-01-29] MEDS: INSULIN SLIDING SCALE (NOVOLOG) 1 VIAL SQ SCH ×4 (06:35→22:06)
[2018-01-29] MEDS: CLOPIDOGREL BISULFATE 75 MG TABLET (FP) PO SCH (06:35)
[2018-01-29] MEDS: sitaGLIPtin PHOSPHATE 25 MG TABLET (FP) PO SCH (06:36)
[2018-01-29] MEDS: GABAPENTIN 300 MG CAPSULE (FP) PO SCH ×3 (06:38→21:37)
[2018-01-29] MEDS: MAG HYDROX/AL HYDROX/SIMETH 30 ML UNIT-DOSE CUP PO PRN ×2 (06:38→17:07)
[2018-01-29] MEDS: FINASTERIDE 5 MG TABLET (FP) PO SCH (10:26)
[2018-01-29] MEDS: RANITIDINE HCL 150 MG TABLET (FP) PO SCH ×2 (10:26→21:37)
[2018-01-29] MEDS: NIFEdipine E.R. 30 MG TABLET (FP) PO SCH (10:26)
[2018-01-29] MEDS: PRENATAL VITAMINS W/ FOLIC ACID TABLET (FP) PO SCH (10:26)
[2018-01-29] MEDS: ASPIRIN COATED 81 MG TABLET.EC PO SCH (10:26)
[2018-01-29] MEDS: NICOTINE 21 MG/24 HOURS TOPICAL PATCH TD SCH (10:26)
[2018-01-29] MEDS: BUDESONIDE/FORMETEROL FUMARATE 160/4.5 mcg INHALER IH SCH ×2 (10:26→22:05)
[2018-01-29] MEDS: NICOTINE POLACRILEX 2 MG GUM BUC PRN (10:27)
[2018-01-29] MEDS ORDERED: INSULIN (NOVOLOG) ASPART 100 UNITS/ML 10ML VIAL ONE ×2 (12:15→17:14)
[2018-01-29] MEDS: THIAMINE HCL 100 MG TABLET (FP) PO SCH (21:37)
[2018-01-29] MEDS: ATORVASTATIN CA 40 MG TABLET (FP) PO SCH (21:37)
[2018-01-29] MEDS: TAMSULOSIN HCL 0.4 MG CAP.ER.24H (FP) PO SCH (21:37)
[2018-01-29] MEDS: MELATONIN 5 MG TABLETS PO PRN (21:39)
[2018-01-30] MEDS: glipiZIDE 10 MG TABLET (FP) PO SCH ×2 (06:29→16:53)
[2018-01-30] MEDS: sitaGLIPtin PHOSPHATE 25 MG TABLET (FP) PO SCH (06:29)
[2018-01-30] MEDS: GABAPENTIN 300 MG CAPSULE (FP) PO SCH ×3 (06:29→21:33)
[2018-01-30] MEDS: CLOPIDOGREL BISULFATE 75 MG TABLET (FP) PO SCH (06:29)
[2018-01-30] MEDS: MAG HYDROX/AL HYDROX/SIMETH 30 ML UNIT-DOSE CUP PO PRN ×2 (06:31→13:27)
[2018-01-30] MEDS: INSULIN SLIDING SCALE (NOVOLOG) 1 VIAL SQ SCH ×4 (06:32→21:33)
[2018-01-30] MEDS: PRENATAL VITAMINS W/ FOLIC ACID TABLET (FP) PO SCH (10:10)
[2018-01-30] MEDS: ASPIRIN COATED 81 MG TABLET.EC PO SCH (10:10)
[2018-01-30] MEDS: NIFEdipine E.R. 30 MG TABLET (FP) PO SCH (10:10)
[2018-01-30] MEDS: RANITIDINE HCL 150 MG TABLET (FP) PO SCH ×2 (10:10→21:33)
[2018-01-30] MEDS: FINASTERIDE 5 MG TABLET (FP) PO SCH (10:10)
[2018-01-30] MEDS: BUDESONIDE/FORMETEROL FUMARATE 160/4.5 mcg INHALER IH SCH ×2 (10:11→21:35)
[2018-01-30] MEDS: NICOTINE 21 MG/24 HOURS TOPICAL PATCH TD SCH (10:12)
[2018-01-30] MEDS: NICOTINE POLACRILEX 2 MG GUM BUC PRN ×3 (10:14→19:42)
[2018-01-30] MEDS ORDERED: INSULIN (NOVOLOG) ASPART 100 UNITS/ML 10ML VIAL ONE ×2 (12:06→17:07)
[2018-01-30] MEDS: MELATONIN 5 MG TABLETS PO PRN (21:33)
[2018-01-30] MEDS: TAMSULOSIN HCL 0.4 MG CAP.ER.24H (FP) PO SCH (21:33)
[2018-01-30] MEDS: THIAMINE HCL 100 MG TABLET (FP) PO SCH (21:33)
[2018-01-30] MEDS: ATORVASTATIN CA 40 MG TABLET (FP) PO SCH (21:33)
[2018-01-31] MEDS: sitaGLIPtin PHOSPHATE 25 MG TABLET (FP) PO SCH (06:27)
[2018-01-31] MEDS: glipiZIDE 10 MG TABLET (FP) PO SCH ×2 (06:27→16:59)
[2018-01-31] MEDS: GABAPENTIN 300 MG CAPSULE (FP) PO SCH ×3 (06:28→22:03)
[2018-01-31] MEDS: NICOTINE POLACRILEX 2 MG GUM BUC PRN ×3 (06:32→17:51)
[2018-01-31] MEDS: MAG HYDROX/AL HYDROX/SIMETH 30 ML UNIT-DOSE CUP PO PRN ×3 (06:32→19:01)
[2018-01-31] MEDS: CLOPIDOGREL BISULFATE 75 MG TABLET (FP) PO SCH (07:31)
[2018-01-31] MEDS ORDERED: INSULIN (NOVOLOG) ASPART 100 UNITS/ML 10ML VIAL ONE ×2 (07:33→12:26)
[2018-01-31] MEDS: INSULIN SLIDING SCALE (NOVOLOG) 1 VIAL SQ SCH ×4 (07:34→22:07)
[2018-01-31] MEDS: PRENATAL VITAMINS W/ FOLIC ACID TABLET (FP) PO SCH (10:45)
[2018-01-31] MEDS: FINASTERIDE 5 MG TABLET (FP) PO SCH (10:45)
[2018-01-31] MEDS: BUDESONIDE/FORMETEROL FUMARATE 160/4.5 mcg INHALER IH SCH ×2 (10:45→22:01)
[2018-01-31] MEDS: ASPIRIN COATED 81 MG TABLET.EC PO SCH (10:45)
[2018-01-31] MEDS: NIFEdipine E.R. 30 MG TABLET (FP) PO SCH (10:46)
[2018-01-31] MEDS: RANITIDINE HCL 150 MG TABLET (FP) PO SCH ×2 (10:46→22:02)
[2018-01-31] MEDS: NICOTINE 21 MG/24 HOURS TOPICAL PATCH TD SCH (10:46)
--- NOTE | 2018-01-31 13:18 | PN ---
[facility] Progress Note Note: Vital Signs Temperature 98.0 F 01/31/18 06:32 Pulse Rate 95 H 01/31/18 10:00 Respiratory Rate 20 01/31/18 06:32 Blood Pressure 138/90 01/31/18 10:00 O2 Sat by Pulse Oximetry (%) Laboratory Last Values POC Glucometer 323 UNITS (80-120) 01/31/18 06:26 Hemoglobin A1c % 7.8 % (4.8-6.0) H D 01/27/18 07:40 Labs reviewed with patient, discussed lifestyle modifications, alcohol abstinence and to follow up with primary care provider. Patient verbalize understanding will continue to monitor
[2018-01-31] MEDS: ATORVASTATIN CA 40 MG TABLET (FP) PO SCH (22:02)
[2018-01-31] MEDS: MELATONIN 5 MG TABLETS PO PRN (22:02)
[2018-01-31] MEDS: THIAMINE HCL 100 MG TABLET (FP) PO SCH (22:02)
[2018-01-31] MEDS: TAMSULOSIN HCL 0.4 MG CAP.ER.24H (FP) PO SCH (22:02)
[2018-02-01] MEDS: glipiZIDE 10 MG TABLET (FP) PO SCH ×2 (06:50→16:44)
[2018-02-01] MEDS: sitaGLIPtin PHOSPHATE 25 MG TABLET (FP) PO SCH (06:51)
[2018-02-01] MEDS: GABAPENTIN 300 MG CAPSULE (FP) PO SCH ×3 (06:51→21:36)
[2018-02-01] MEDS: NICOTINE POLACRILEX 2 MG GUM BUC PRN ×5 (06:52→21:38)
[2018-02-01] MEDS: MAG HYDROX/AL HYDROX/SIMETH 30 ML UNIT-DOSE CUP PO PRN ×2 (06:54→17:46)
[2018-02-01] MEDS: INSULIN SLIDING SCALE (NOVOLOG) 1 VIAL SQ SCH ×4 (07:47→21:35)
[2018-02-01] MEDS: CLOPIDOGREL BISULFATE 75 MG TABLET (FP) PO SCH (07:53)
[2018-02-01] MEDS: BUDESONIDE/FORMETEROL FUMARATE 160/4.5 mcg INHALER IH SCH ×2 (10:20→21:38)
[2018-02-01] MEDS: RANITIDINE HCL 150 MG TABLET (FP) PO SCH ×2 (10:21→21:36)
[2018-02-01] MEDS: PRENATAL VITAMINS W/ FOLIC ACID TABLET (FP) PO SCH (10:21)
[2018-02-01] MEDS: ASPIRIN COATED 81 MG TABLET.EC PO SCH (10:21)
[2018-02-01] MEDS: FINASTERIDE 5 MG TABLET (FP) PO SCH (10:21)
[2018-02-01] MEDS: NIFEdipine E.R. 30 MG TABLET (FP) PO SCH (10:21)
[2018-02-01] MEDS: NICOTINE 21 MG/24 HOURS TOPICAL PATCH TD SCH (10:22)
[2018-02-01] MEDS ORDERED: INSULIN (NOVOLOG) ASPART 100 UNITS/ML 10ML VIAL ONE ×3 (12:07→21:54)
--- NOTE | 2018-02-01 13:53 | PN ---
[facility] Progress Note Note: Vital Signs Temperature 98.6 F 02/01/18 07:12 Pulse Rate 97 H 02/01/18 09:00 Respiratory Rate 18 02/01/18 07:12 Blood Pressure 110/67 02/01/18 09:00 O2 Sat by Pulse Oximetry (%) Laboratory Last Values POC Glucometer 276 UNITS (80-120) 02/01/18 06:47 Hemoglobin A1c % 7.8 % (4.8-6.0) H D 01/27/18 07:40 patient denies any symptoms at this time. Januvia dose adjusted from 25 mg to 50 mg, BGM still high tinea pedis : tianctin tp cream increase fluids continue to monitor
[2018-02-01] MEDS: THIAMINE HCL 100 MG TABLET (FP) PO SCH (21:36)
[2018-02-01] MEDS: TAMSULOSIN HCL 0.4 MG CAP.ER.24H (FP) PO SCH (21:36)
[2018-02-01] MEDS: ATORVASTATIN CA 40 MG TABLET (FP) PO SCH (21:36)
[2018-02-01] MEDS: MELATONIN 5 MG TABLETS PO PRN (21:36)
[2018-02-01] MEDS: TOLNAFTATE 1% CREAM 15 GM TUBE TP SCH (21:39)
[2018-02-02] MEDS: GABAPENTIN 300 MG CAPSULE (FP) PO SCH ×3 (06:26→21:46)
[2018-02-02] MEDS: glipiZIDE 10 MG TABLET (FP) PO SCH ×2 (06:27→16:50)
[2018-02-02] MEDS: CLOPIDOGREL BISULFATE 75 MG TABLET (FP) PO SCH (06:27)
[2018-02-02] MEDS: MAG HYDROX/AL HYDROX/SIMETH 30 ML UNIT-DOSE CUP PO PRN ×2 (06:29→16:46)
[2018-02-02] MEDS: NICOTINE POLACRILEX 2 MG GUM BUC PRN ×5 (06:29→21:47)
[2018-02-02] MEDS: INSULIN SLIDING SCALE (NOVOLOG) 1 VIAL SQ SCH ×4 (07:08→21:48)
[2018-02-02] MEDS: sitaGLIPtin PHOSPHATE 50 MG TABLET PO SCH (07:08)
[2018-02-02] MEDS: NICOTINE 21 MG/24 HOURS TOPICAL PATCH TD SCH (10:20)
[2018-02-02] MEDS: BUDESONIDE/FORMETEROL FUMARATE 160/4.5 mcg INHALER IH SCH ×2 (10:20→21:46)
[2018-02-02] MEDS: PRENATAL VITAMINS W/ FOLIC ACID TABLET (FP) PO SCH (10:21)
[2018-02-02] MEDS: TOLNAFTATE 1% CREAM 15 GM TUBE TP SCH ×2 (10:21→21:46)
[2018-02-02] MEDS: NIFEdipine E.R. 30 MG TABLET (FP) PO SCH (10:21)
[2018-02-02] MEDS: RANITIDINE HCL 150 MG TABLET (FP) PO SCH ×2 (10:21→21:45)
[2018-02-02] MEDS: ASPIRIN COATED 81 MG TABLET.EC PO SCH (10:21)
[2018-02-02] MEDS: FINASTERIDE 5 MG TABLET (FP) PO SCH (10:21)
[2018-02-02] MEDS ORDERED: INSULIN (NOVOLOG) ASPART 100 UNITS/ML 10ML VIAL ONE ×3 (12:09→22:07)
[2018-02-02] MEDS: THIAMINE HCL 100 MG TABLET (FP) PO SCH (21:44)
[2018-02-02] MEDS: TAMSULOSIN HCL 0.4 MG CAP.ER.24H (FP) PO SCH (21:45)
[2018-02-02] MEDS: MELATONIN 5 MG TABLETS PO PRN (21:45)
[2018-02-02] MEDS: ATORVASTATIN CA 40 MG TABLET (FP) PO SCH (21:45)
[2018-02-03] MEDS: CLOPIDOGREL BISULFATE 75 MG TABLET (FP) PO SCH (06:13)
[2018-02-03] MEDS: sitaGLIPtin PHOSPHATE 50 MG TABLET PO SCH (06:13)
[2018-02-03] MEDS: GABAPENTIN 300 MG CAPSULE (FP) PO SCH ×3 (06:13→21:52)
[2018-02-03] MEDS: glipiZIDE 10 MG TABLET (FP) PO SCH ×2 (06:13→16:41)
[2018-02-03] MEDS: NICOTINE POLACRILEX 2 MG GUM BUC PRN ×4 (06:14→21:53)
[2018-02-03] MEDS: MAG HYDROX/AL HYDROX/SIMETH 30 ML UNIT-DOSE CUP PO PRN ×2 (06:16→16:44)
[2018-02-03] MEDS: INSULIN SLIDING SCALE (NOVOLOG) 1 VIAL SQ SCH ×4 (07:03→21:55)
[2018-02-03] MEDS ORDERED: INSULIN (NOVOLOG) ASPART 100 UNITS/ML 10ML VIAL ONE ×4 (07:16→22:13)
[2018-02-03] MEDS: FINASTERIDE 5 MG TABLET (FP) PO SCH (10:44)
[2018-02-03] MEDS: ASPIRIN COATED 81 MG TABLET.EC PO SCH (10:44)
[2018-02-03] MEDS: NIFEdipine E.R. 30 MG TABLET (FP) PO SCH (10:44)
[2018-02-03] MEDS: RANITIDINE HCL 150 MG TABLET (FP) PO SCH ×2 (10:44→21:51)
[2018-02-03] MEDS: TOLNAFTATE 1% CREAM 15 GM TUBE TP SCH ×2 (10:44→21:52)
[2018-02-03] MEDS: NICOTINE 21 MG/24 HOURS TOPICAL PATCH TD SCH (10:45)
[2018-02-03] MEDS: PRENATAL VITAMINS W/ FOLIC ACID TABLET (FP) PO SCH (10:46)
[2018-02-03] MEDS: BUDESONIDE/FORMETEROL FUMARATE 160/4.5 mcg INHALER IH SCH ×2 (10:47→21:51)
--- NOTE | 2018-02-03 13:53 | PN ---
S Progress Note Note: Vital Signs Temperature 99.2 F 02/03/18 07:05 Pulse Rate 99 H 02/03/18 10:00 Respiratory Rate 18 02/03/18 07:05 Blood Pressure 127/87 02/03/18 10:00 O2 Sat by Pulse Oximetry (%) patient currently stable. Patient schedule to complete program 02/08/18. Patient to follow up with primary care provider 1-2 weeks. If worsening symptoms are present patient seek medical attention or go to the ED.
[2018-02-03] MEDS: TAMSULOSIN HCL 0.4 MG CAP.ER.24H (FP) PO SCH (21:51)
[2018-02-03] MEDS: ATORVASTATIN CA 40 MG TABLET (FP) PO SCH (21:51)
[2018-02-03] MEDS: THIAMINE HCL 100 MG TABLET (FP) PO SCH (21:51)
[2018-02-03] MEDS: MELATONIN 5 MG TABLETS PO PRN (21:52)
[2018-02-04] MEDS ORDERED: INSULIN (NOVOLOG) ASPART 100 UNITS/ML 10ML VIAL ONE ×3 (06:56→21:50)
[2018-02-04] MEDS: INSULIN SLIDING SCALE (NOVOLOG) 1 VIAL SQ SCH ×4 (06:56→21:35)
[2018-02-04] MEDS: glipiZIDE 10 MG TABLET (FP) PO SCH ×2 (06:57→16:37)
[2018-02-04] MEDS: CLOPIDOGREL BISULFATE 75 MG TABLET (FP) PO SCH (06:57)
[2018-02-04] MEDS: GABAPENTIN 300 MG CAPSULE (FP) PO SCH ×3 (06:57→21:35)
[2018-02-04] MEDS: MAG HYDROX/AL HYDROX/SIMETH 30 ML UNIT-DOSE CUP PO PRN ×2 (07:00→16:37)
[2018-02-04] MEDS: sitaGLIPtin PHOSPHATE 100 MG TABLET (FP) PO SCH (07:05)
[2018-02-04] MEDS: ASPIRIN COATED 81 MG TABLET.EC PO SCH (10:23)
[2018-02-04] MEDS: PRENATAL VITAMINS W/ FOLIC ACID TABLET (FP) PO SCH (10:23)
[2018-02-04] MEDS: FINASTERIDE 5 MG TABLET (FP) PO SCH (10:23)
[2018-02-04] MEDS: BUDESONIDE/FORMETEROL FUMARATE 160/4.5 mcg INHALER IH SCH ×2 (10:24→21:36)
[2018-02-04] MEDS: NICOTINE 21 MG/24 HOURS TOPICAL PATCH TD SCH (10:24)
[2018-02-04] MEDS: NIFEdipine E.R. 30 MG TABLET (FP) PO SCH (10:25)
[2018-02-04] MEDS: RANITIDINE HCL 150 MG TABLET (FP) PO SCH ×2 (10:25→21:34)
[2018-02-04] MEDS: NICOTINE POLACRILEX 2 MG GUM BUC PRN ×4 (10:26→21:38)
[2018-02-04] MEDS: TOLNAFTATE 1% CREAM 15 GM TUBE TP SCH ×2 (10:26→21:37)
[2018-02-04] MEDS: TAMSULOSIN HCL 0.4 MG CAP.ER.24H (FP) PO SCH (21:35)
[2018-02-04] MEDS: MELATONIN 5 MG TABLETS PO PRN (21:35)
[2018-02-04] MEDS: THIAMINE HCL 100 MG TABLET (FP) PO SCH (21:35)
[2018-02-04] MEDS: ATORVASTATIN CA 40 MG TABLET (FP) PO SCH (21:35)
[2018-02-05] MEDS: CLOPIDOGREL BISULFATE 75 MG TABLET (FP) PO SCH (06:29)
[2018-02-05] MEDS: glipiZIDE 10 MG TABLET (FP) PO SCH ×2 (06:29→16:37)
[2018-02-05] MEDS: GABAPENTIN 300 MG CAPSULE (FP) PO SCH ×3 (06:29→21:51)
[2018-02-05] MEDS: MAG HYDROX/AL HYDROX/SIMETH 30 ML UNIT-DOSE CUP PO PRN ×2 (06:30→16:37)
[2018-02-05] MEDS: NICOTINE POLACRILEX 2 MG GUM BUC PRN ×4 (06:32→21:55)
[2018-02-05] MEDS: INSULIN SLIDING SCALE (NOVOLOG) 1 VIAL SQ SCH ×4 (07:07→22:02)
[2018-02-05] MEDS: sitaGLIPtin PHOSPHATE 100 MG TABLET (FP) PO SCH (07:07)
[2018-02-05] MEDS: RANITIDINE HCL 150 MG TABLET (FP) PO SCH ×2 (10:21→21:52)
[2018-02-05] MEDS: NIFEdipine E.R. 30 MG TABLET (FP) PO SCH (10:21)
[2018-02-05] MEDS: FINASTERIDE 5 MG TABLET (FP) PO SCH (10:21)
[2018-02-05] MEDS: PRENATAL VITAMINS W/ FOLIC ACID TABLET (FP) PO SCH (10:21)
[2018-02-05] MEDS: NICOTINE 21 MG/24 HOURS TOPICAL PATCH TD SCH (10:21)
[2018-02-05] MEDS: BUDESONIDE/FORMETEROL FUMARATE 160/4.5 mcg INHALER IH SCH ×2 (10:21→21:51)
[2018-02-05] MEDS: ASPIRIN COATED 81 MG TABLET.EC PO SCH (10:21)
[2018-02-05] MEDS: TOLNAFTATE 1% CREAM 15 GM TUBE TP SCH ×2 (10:24→21:52)
[2018-02-05] MEDS ORDERED: INSULIN (NOVOLOG) ASPART 100 UNITS/ML 10ML VIAL ONE ×3 (12:04→22:01)
[2018-02-05] MEDS: TAMSULOSIN HCL 0.4 MG CAP.ER.24H (FP) PO SCH (21:52)
[2018-02-05] MEDS: ATORVASTATIN CA 40 MG TABLET (FP) PO SCH (21:52)
[2018-02-05] MEDS: THIAMINE HCL 100 MG TABLET (FP) PO SCH (21:52)
[2018-02-05] MEDS: MELATONIN 5 MG TABLETS PO PRN (21:53)
[2018-02-06] MEDS: glipiZIDE 10 MG TABLET (FP) PO SCH ×2 (06:25→16:49)
[2018-02-06] MEDS: GABAPENTIN 300 MG CAPSULE (FP) PO SCH ×3 (06:25→21:57)
[2018-02-06] MEDS: sitaGLIPtin PHOSPHATE 100 MG TABLET (FP) PO SCH (06:25)
[2018-02-06] MEDS: CLOPIDOGREL BISULFATE 75 MG TABLET (FP) PO SCH (06:25)
[2018-02-06] MEDS: MAG HYDROX/AL HYDROX/SIMETH 30 ML UNIT-DOSE CUP PO PRN ×2 (06:29→16:51)
[2018-02-06] MEDS: NICOTINE POLACRILEX 2 MG GUM BUC PRN ×4 (06:29→21:57)
[2018-02-06] MEDS: INSULIN SLIDING SCALE (NOVOLOG) 1 VIAL SQ SCH ×4 (07:28→22:00)
[2018-02-06] MEDS: NIFEdipine E.R. 30 MG TABLET (FP) PO SCH (10:09)
[2018-02-06] MEDS: RANITIDINE HCL 150 MG TABLET (FP) PO SCH ×2 (10:09→21:56)
[2018-02-06] MEDS: PRENATAL VITAMINS W/ FOLIC ACID TABLET (FP) PO SCH (10:09)
[2018-02-06] MEDS: FINASTERIDE 5 MG TABLET (FP) PO SCH (10:10)
[2018-02-06] MEDS: ASPIRIN COATED 81 MG TABLET.EC PO SCH (10:10)
[2018-02-06] MEDS: NICOTINE 21 MG/24 HOURS TOPICAL PATCH TD SCH (10:10)
[2018-02-06] MEDS: TOLNAFTATE 1% CREAM 15 GM TUBE TP SCH ×2 (10:10→22:00)
[2018-02-06] MEDS: BUDESONIDE/FORMETEROL FUMARATE 160/4.5 mcg INHALER IH SCH ×2 (10:10→21:55)
[2018-02-06] MEDS ORDERED: INSULIN (NOVOLOG) ASPART 100 UNITS/ML 10ML VIAL ONE ×2 (11:49→22:02)
[2018-02-06] MEDS: THIAMINE HCL 100 MG TABLET (FP) PO SCH (21:55)
[2018-02-06] MEDS: MELATONIN 5 MG TABLETS PO PRN (21:55)
[2018-02-06] MEDS: TAMSULOSIN HCL 0.4 MG CAP.ER.24H (FP) PO SCH (21:56)
[2018-02-06] MEDS: ATORVASTATIN CA 40 MG TABLET (FP) PO SCH (21:56)
[2018-02-07] MEDS: sitaGLIPtin PHOSPHATE 100 MG TABLET (FP) PO SCH (06:46)
[2018-02-07] MEDS: GABAPENTIN 300 MG CAPSULE (FP) PO SCH ×3 (06:47→21:54)
[2018-02-07] MEDS: NICOTINE POLACRILEX 2 MG GUM BUC PRN ×5 (06:48→21:58)
[2018-02-07] MEDS: glipiZIDE 10 MG TABLET (FP) PO SCH ×2 (06:48→16:32)
[2018-02-07] MEDS: CLOPIDOGREL BISULFATE 75 MG TABLET (FP) PO SCH (06:48)
[2018-02-07] MEDS: MAG HYDROX/AL HYDROX/SIMETH 30 ML UNIT-DOSE CUP PO PRN ×2 (06:50→18:03)
[2018-02-07] MEDS ORDERED: INSULIN (NOVOLOG) ASPART 100 UNITS/ML 10ML VIAL ONE ×3 (06:53→21:57)
[2018-02-07] MEDS: INSULIN SLIDING SCALE (NOVOLOG) 1 VIAL SQ SCH ×4 (07:38→21:56)
[2018-02-07] MEDS: NIFEdipine E.R. 30 MG TABLET (FP) PO SCH (10:12)
[2018-02-07] MEDS: RANITIDINE HCL 150 MG TABLET (FP) PO SCH ×2 (10:12→21:53)
[2018-02-07] MEDS: ASPIRIN COATED 81 MG TABLET.EC PO SCH (10:12)
[2018-02-07] MEDS: FINASTERIDE 5 MG TABLET (FP) PO SCH (10:12)
[2018-02-07] MEDS: PRENATAL VITAMINS W/ FOLIC ACID TABLET (FP) PO SCH (10:12)
[2018-02-07] MEDS: TOLNAFTATE 1% CREAM 15 GM TUBE TP SCH ×2 (10:12→21:53)
[2018-02-07] MEDS: NICOTINE 21 MG/24 HOURS TOPICAL PATCH TD SCH (10:13)
[2018-02-07] MEDS: BUDESONIDE/FORMETEROL FUMARATE 160/4.5 mcg INHALER IH SCH ×2 (10:13→21:53)
[2018-02-07] MEDS: TAMSULOSIN HCL 0.4 MG CAP.ER.24H (FP) PO SCH (21:53)
[2018-02-07] MEDS: THIAMINE HCL 100 MG TABLET (FP) PO SCH (21:53)
[2018-02-07] MEDS: ATORVASTATIN CA 40 MG TABLET (FP) PO SCH (21:54)
[2018-02-07] MEDS: MELATONIN 5 MG TABLETS PO PRN (21:57)
[2018-02-08] MEDS: CLOPIDOGREL BISULFATE 75 MG TABLET (FP) PO SCH (06:23)
[2018-02-08] MEDS: sitaGLIPtin PHOSPHATE 100 MG TABLET (FP) PO SCH (06:23)
[2018-02-08] MEDS: glipiZIDE 10 MG TABLET (FP) PO SCH (06:23)
[2018-02-08] MEDS: GABAPENTIN 300 MG CAPSULE (FP) PO SCH (06:24)
[2018-02-08] MEDS: MAG HYDROX/AL HYDROX/SIMETH 30 ML UNIT-DOSE CUP PO PRN (06:28)
[2018-02-08] MEDS: NICOTINE POLACRILEX 2 MG GUM BUC PRN ×2 (06:28→10:29)
[2018-02-08 06:54] VITALS: BP 111/84; PULSE 97; TEMP 98.1
[2018-02-08] MEDS: INSULIN SLIDING SCALE (NOVOLOG) 1 VIAL SQ SCH (07:12)
--- NOTE | 2018-02-08 09:12 | PN ---
Psychiatric Progress Note Vital Signs: Vital Signs Period Temp Pulse Resp BP Sys/Melendez Pulse Ox Last 24 Hr 98.1 F 97 18-18 111/84 Date of Session: 02/08/18 Chief Complaint:: "Discharge" HPI: Patient was admitted to for alcohol dependence. ROS: Significant for bronchial asthma, hypertension, dyslipidemia, type 2 diabetes mellitus, diabetic neuropathy, GERD, hepatitis C, benigh prostatic hyperplasia, history of treatment for syphilis and surgery for right inguinal herniorraphy. Current Medications: Active Medications Generic Name Dose Route Start Last Admin Trade Name Freq PRN Reason Stop Dose Admin Acetaminophen 650 mg 01/23/18 14:20 Tylenol - PO Q4H PRN FEVER Al Hydroxide/Mg Hydroxide 30 ml 01/23/18 14:20 02/08/18 06:28 Mylanta Oral Suspension - PO 30 ml Q6H PRN Administration DYSPEPSIA Albuterol Sulfate 2 puff 01/23/18 14:22 02/04/18 16:38 Ventolin Hfa Inhaler - IH 2 puff Q4H PRN Administration SHORT OF BREATH/WHEEZING Aspirin 81 mg 01/24/18 10:00 02/07/18 10:12 Ecotrin - PO 81 mg DAILY DICK Administration Atorvastatin Calcium 40 mg 01/23/18 22:00 02/07/18 21:54 Lipitor - PO 40 mg HS DICK Administration Budesonide/Formoterol Fumarate 2 puff 01/23/18 22:00 02/07/18 21:53 Symbicort 160/4.5mcg - IH 2 puff BID DICK Administration Clopidogrel Bisulfate 75 mg 01/26/18 07:00 02/08/18 06:23 Plavix - PO 75 mg DAILY@0700 DICK Administration Eucalyptus/Menthol/Phenol/Sorbitol 1 each 01/23/18 14:20 Cepastat Lozenge - MM Q4H PRN SORE THROAT Finasteride 5 mg 01/24/18 10:00 02/07/18 10:12 Proscar - PO 5 mg DAILY DICK Administration Gabapentin 600 mg 01/23/18 22:00 02/08/18 06:24 Neurontin - PO 600 mg TID DICK Administration Glipizide 10 mg 01/24/18 07:00 02/08/18 06:23 Glucotrol - PO 10 mg BID@0700,1630 DICK Administration Guaifenesin 10 ml 01/23/18 14:20 Robitussin Dm - PO Q6H PRN COUGH Hydroxyzine HCl 25 mg 01/24/18 09:53 01/27/18 21:54 Atarax - PO 25 mg HS PRN Administration FOR ITCHING Insulin Aspart 1 vial 02/01/18 13:13 02/08/18 07:12 Novolog Vial Sliding Scale - SQ Not Given ACHS [facility] Protocol Loperamide HCl 4 mg 01/23/18 14:20 Imodium - PO Q6H PRN DIARRHEA Magnesium Citrate 300 ml 01/23/18 14:20 Citroma - PO Q48H PRN CONSTIPATION Magnesium Hydroxide 30 ml 01/23/18 14:20 Milk Of Magnesia - PO DAILY PRN CONSTIPATION Melatonin 5 mg 01/23/18 22:00 02/07/18 21:57 Melatonin PO 5 mg HS PRN Administration INSOMNIA Nicotine 21 mg 01/23/18 14:30 02/07/18 10:13 Nicoderm Patch - TD 21 mg DAILY DICK Administration Nicotine Polacrilex 2 mg 01/23/18 14:20 02/08/18 06:28 Nicorette Gum - BUC 2 mg Q2H PRN Administration NICOTINE REPLACEMENT RX Nifedipine 30 mg 01/24/18 10:00 02/07/18 10:12 Procardia Xl - PO 30 mg DAILY DICK Administration Multivit/Folic Acid/Iron 1 tab 01/24/18 10:00 02/07/18 10:12 Vitamins (Sjr) - PO 1 tab DAILY DICK Administration Pseudoephedrine/Triprolidine 1 combo 01/23/18 14:20 Actifed - PO TID PRN NASAL CONGESTION Ranitidine HCl 150 mg 01/25/18 22:00 02/07/18 21:53 Zantac - PO 150 mg BID DICK Administration Sitagliptin Phosphate 100 mg 02/04/18 07:00 02/08/18 06:23 Januvia - PO 100 mg DAILY@0700 DICK Administration Tamsulosin HCl 0.4 mg 01/23/18 22:00 02/07/18 21:53 Flomax - PO 0.4 mg HS DICK Administration Thiamine HCl 100 mg 01/23/18 22:00 02/07/18 21:53 Vitamin B1 - PO 100 mg HS DICK Administration Tolnaftate 1 applic 02/01/18 22:00 02/07/18 21:53 Tinactin 1% Cream - TP Not Given BID [facility] Medication(s) Change(s): No. Current Side Effect: No Lab tests ordered: No Lab tests reviewed: Yes Provider note:: Patient able to complete the rehabilitation program on 02/08/18. He has met his treatment goals and is able to identify behaviors that contribute to relapsing. Through participation of this program patient has learned the importance of changing his behaviors and the need for more structure in his life. Pt. will be discharged to [facility] and will continue to address his issues at [facility]. Pt. was not prescribed psychotropic medications during his stay. Pt. is stable for discharge on 02/08/18. Total face to face time:: 35 Mental Status Exam - Mental Status Exam Alert and Oriented to: Time, Place, Person Cognitive Function: Good Patient Appearance: Well Groomed Mood: Hopeful Affect: Mood Congruent Patient Behavior: Appropriate, Cooperative Speech Pattern: Clear, Appropriate Voice Loudness: Normal Thought Process: Intact, Goal Oriented Thought Disorder: Not Present Hallucinations: Denies Suicidal Ideation: Denies Homicidal Ideation: Denies Insight/Judgement: Good Sleep: Well Appetite: Good Muscle strength/Tone: Normal Gait/Station: Normal Psychiatric Treatment Plan - Problem List (1) Alcohol dependence Current Visit: Yes (2) Alcohol-induced mood disorder Current Visit: Yes (3) Alcohol-induced sleep disorder Current Visit: Yes (4) Paranoid schizophrenia Current Visit: No Comment: Refuses to accept medications.
[2018-02-08] MEDS: FINASTERIDE 5 MG TABLET (FP) PO SCH (10:27)
[2018-02-08] MEDS: RANITIDINE HCL 150 MG TABLET (FP) PO SCH (10:27)
[2018-02-08] MEDS: ASPIRIN COATED 81 MG TABLET.EC PO SCH (10:27)
[2018-02-08] MEDS: TOLNAFTATE 1% CREAM 15 GM TUBE TP SCH (10:27)
[2018-02-08] MEDS: BUDESONIDE/FORMETEROL FUMARATE 160/4.5 mcg INHALER IH SCH (10:27)
[2018-02-08] MEDS: PRENATAL VITAMINS W/ FOLIC ACID TABLET (FP) PO SCH (10:27)
[2018-02-08] MEDS: NIFEdipine E.R. 30 MG TABLET (FP) PO SCH (10:27)
[2018-02-08] MEDS: NICOTINE 21 MG/24 HOURS TOPICAL PATCH TD SCH (10:29)
== END 2018-02-08 11:30 | disposition home or self-care (01) | DRG 772 ==
LOC: YASAS 13:06 → Y5N 13:07
PROVIDERS: ADMIT Psychiatry & Neurology Psychiatry; ATTEND Psychiatry & Neurology Psychiatry
PROC: HZ42ZZZ Group Counseling for Substance Abuse Treatment, Cognitive-Behavioral (ICD-10-PCS; principal; 2018-01-23)
DX: F10.20 Alcohol dependence, uncomplicated (principal); F10.24 Alcohol dependence with alcohol-induced mood disorder; F10.282 Alcohol dependence with alcohol-induced sleep disorder; F20.0 Paranoid schizophrenia; I10 Essential (primary) hypertension; J43.0 Unilateral pulmonary emphysema [MacLeod's syndrome]; J45.909 Unspecified asthma, uncomplicated; D50.8 Other iron deficiency anemias; E78.5 Hyperlipidemia, unspecified; K21.9 Gastro-esophageal reflux disease without esophagitis; E11.40 Type 2 diabetes mellitus with diabetic neuropathy, unspecified; E11.65 Type 2 diabetes mellitus with hyperglycemia; Z79.4 Long term (current) use of insulin; B18.2 Chronic viral hepatitis C; N40.0 Benign prostatic hyperplasia without lower urinary tract symptoms; B35.3 Tinea pedis; Z86.19 Personal history of other infectious and parasitic diseases; Z88.0 Allergy status to penicillin
CPT/HCPCS: 82962; 83036; J0735

== ENCOUNTER 2018-05-27 16:11 | Inpatient (IN) | payer OTHER ==
[2018-05-27] MEDS ORDERED: MELATONIN 5 MG TABLETS PO PRN (22:00)
--- NOTE | 2018-05-27 23:33 | HP ---
CIWA Score Nausea/Vomitin-Mild Nausea/No Vomiting Muscle Tremors: 3 Anxiety: 3 Agitation: 3 Paroxysmal Sweats: 3 Orientation: 1-Uncertain about Date Tacttile Disturbances: 0-None Auditory Disturbances: 0-None Visual Disturbances: 0-None Headache: 2-Mild CIWA-Ar Total Score: 16 - Admission Criteria [facility]ASAS Guidelines: Admission for Medically Managed Detox: Requires at least one of the followin. CIWA greater than 12 2. Seizures within the past 24 hours 3. Delirium tremens within the past 24 hours 4. Hallucinations within the past 24 hours 5. Acute intervention needed for co occurring medical disorder 6. Acute intervention needed for co occurring psychiatric disorder 7. Severe withdrawal that cannot be handled at a lower level of care (continued vomiting, continued diarrhea, abnormal vital signs) requiring intravenous medication and/or fluids 8. Admission ROS [facility] Chief Complaint: ALCOHOL WITHDRAWAL SYMPTOMS Allergies/Adverse Reactions: Allergies Allergy/AdvReac Type Severity Reaction Status Date / Time Penicillins Allergy Severe diarrhea Verified 05/27/18 22:44 History of Present Illness: 62 years old male with 30 years of alcohol dependence is seeking admission to detox. Patient has had multiple detox admissions and reports eight months of sobriety. He has medical history of Hypertension, DM Type 2, Hyperlipidemia, BPH , GERD, Hep C, COPD, Anemia, anxiety, insomnia and depression. He denies suicidal ideation at this time. Exam Limitations: No Limitations - Ebola screening Have you traveled outside of the country in the last 21 days: No (N) Have you had contact with anyone from an Ebola affected area: No Do you have a fever: No - Review of Systems Constitutional: Chills, Loss of Appetite, Malaise, Changes in sleep EENT: reports: Nose Congestion Respiratory: reports: No Symptoms reported Cardiac: reports: No Symptoms Reported GI: reports: Poor Appetite, Poor Fluid Intake, Abdominal cramping : reports: No Symptoms Reported Musculoskeletal: reports: Back Pain, Muscle Pain Integumentary: reports: Dryness Neuro: reports: Headache, Tremors Endocrine: reports: No Symptoms Reported Hematology: reports: No Symptoms Reported Psychiatric: reports: Anxious, Depressed Other Systems: Reviewed and Negative Patient History - Patient Medical History Hx Anemia: No Hx Asthma: Yes (Albuterol) Hx Chronic Obstructive Pulmonary Disease (COPD): No Hx Cancer: No Hx Cardiac Disorders: No Hx Congestive Heart Failure: No Hx Hypertension: Yes (Metoprolol, Proscar, Procardia) Hx Hypercholesterolemia: Yes Hx Pacemaker: No HX Cerebrovascular Accident: No Hx Seizures: No Hx Dementia: No Hx Diabetes: Yes (Glipizide, [place]) Hx Gastrointestinal Disorders: Yes (GERD- Omeprazole) Hx Liver Disease: No Hx Genitourinary Disorders: Yes (BPH) Hx Sexually Transmitted Disorders: No Hx Renal Disease (ESRD): No Hx Thyroid Disease: No Hx Human Immunodeficiency Virus (HIV): No ( LAST NEGATIVE one year ago ) Hx Hepatitis C: Yes (Not on medication) Hx Depression: Yes (Not on medication) Hx Suicide Attempt: No (Denies suicidal ideation at this time) Hx Bipolar Disorder: No Hx Schizophrenia: No Other Medical History: Anxiety - Not on medication - Patient Surgical History Past Surgical History: Yes Hx Neurologic Surgery: No Hx Cataract Extraction: No Hx Cardiac Surgery: No Hx Lung Surgery: No Hx Breast Surgery: No Hx Breast Biopsy: No Hx Abdominal Surgery: No Hx Appendectomy: No Hx Cholecystectomy: No Hx Genitourinary Surgery: No Hx Section: No Hx Orthopedic Surgery: No Other Surgical History: right inguinal hernia repair Anesthesia Reaction: No - PPD History PPD to be Administered?: No - Reproductive History Patient is a Female of Child Bearing Age (11 -55 yrs old): No (MALE) - Smoking Cessation Smoking history: Current every day smoker Have you smoked in the past 12 months: Yes Aproximately how many cigarettes per day: 10 Hx Chewing Tobacco Use: No Initiated information on smoking cessation: Yes 'Breaking Loose' booklet given: 05/27/18 - Substance & Tx. History Hx Alcohol Use: Yes Hx Substance Use: Yes Substance Use Type: Alcohol, Cocaine Hx Substance Use Treatment: Yes ([facility]) - Substances Abused Alcohol Route: Oral Frequency: Daily Amount used: 4 pints Vodka Age of first use: 20 Date of Last Use: 05/27/18 Cocaine Route: Smoking Frequency: 1-2 times per week Amount used: $30 Age of first use: 38 Date of Last Use: 05/26/18 Family Disease History - Family Disease History Family Disease History: Diabetes: Mother (), Heart Disease: Mother, Other: Father (/killed), Mother Admission Physical Exam S - Physical General Appearance: Yes: Moderate Distress, Tremorous, Irritable, Anxious HEENTM: Yes: EOMI, Normal ENT Inspection, Normal Voice, BRUNO Respiratory: Yes: Lungs Clear, Normal Breath Sounds, No Respiratory Distress Neck: Yes: Supple Breast: Yes: Breast Exam Deferred Cardiology: Yes: Tachycardia Abdominal: Yes: Normal Bowel Sounds, Soft Genitourinary: Yes: Within Normal Limits Back: Yes: Normal Inspection Musculoskeletal: Yes: Within Normal Limits Extremities: Yes: Tremors Neurological: Yes: welding machine operator/tender II-XII NML intact, Alert, Normal Mood/Affect Integumentary: Yes: Warm Lymphatic: Yes: Within Normal Limits - Diagnostic (1) Hep C w/o coma, chronic Current Visit: Yes Status: Chronic (2) BPH (benign prostatic hyperplasia) Current Visit: Yes Status: Chronic (3) Depression Current Visit: Yes Status: Chronic Qualifiers: Depression Type: unspecified Qualified Code(s): F32.9 - Major depressive disorder, single episode, unspecified (4) Alcohol dependence with uncomplicated withdrawal Current Visit: Yes Status: Chronic (5) DM type 2 (diabetes mellitus, type 2) Current Visit: Yes Status: Chronic Qualifiers: Diabetes mellitus complication status: with unspecified complications (6) Anemia Current Visit: Yes Status: Chronic Qualifiers: Anemia type: iron deficiency (7) Asthma Current Visit: Yes Status: Chronic Qualifiers: Asthma severity: moderate Asthma persistence: unspecified Asthma complication type: unspecified Qualified Code(s): J45.909 - Unspecified asthma , uncomplicated (8) COPD (chronic obstructive pulmonary disease) Current Visit: Yes Status: Chronic Qualifiers: COPD type: emphysema Emphysema type: unilateral Qualified Code(s): J43.0 - Unilateral pulmonary emphysema [MacLeod's syndrome] (9) GERD (gastroesophageal reflux disease) Current Visit: No Status: Chronic Qualifiers: Esophagitis presence: esophagitis presence not specified Qualified Code(s) : K21.9 - Gastro-esophageal reflux disease without esophagitis (10) HTN (hypertension) Current Visit: Yes Status: Chronic Qualifiers: Hypertension type: essential hypertension Qualified Code(s): I10 - Essential (primary) hypertension (11) Hypercholesterolemia Current Visit: Yes Status: Chronic (12) Insomnia Current Visit: Yes Status: Chronic Comment: On melatonin. (13) Nicotine dependence Current Visit: Yes Status: Chronic Qualifiers: Nicotine product type: cigarettes Substance use status: in withdrawal Qualified Code(s): F17.213 - Nicotine dependence, cigarettes, with withdrawal Cleared for Admission [facility] - Detox or Rehab [facility] Level of Care: Medically Managed Detox Regimen/Protocol: Librium [facility] Breath Alcohol Content Breath Alcohol Content: 0.080
[2018-05-27] MEDS ORDERED: NICOTINE POLACRILEX 4 MG GUM BC PRN (23:49)
[2018-05-27] MEDS ORDERED: guaiFENesin/D-METHORPHAN HB 10 ML UNIT-DOSE CUPS PO PRN (23:49)
[2018-05-27] MEDS ORDERED: MAGNESIUM CITRATE 300 ML BOTTLE PO PRN (23:49)
[2018-05-27] MEDS ORDERED: chlordiazePOXIDE HCL 25 MG CAPSULE PO PRN (23:49)
[2018-05-27] MEDS ORDERED: LOPERAMIDE HCL 2 MG CAPSULE PO PRN (23:49)
[2018-05-27] MEDS ORDERED: MAGNESIUM HYDROX 2400MG/30ML ORAL SUSPENSION 30 ML CUP PO PRN (23:49)
[2018-05-27] MEDS ORDERED: IBUPROFEN 400 MG TABLET (FP) PO PRN (23:49)
[2018-05-27] MEDS ORDERED: MENTHOL/PHENOL 1 EACH UD MM PRN (23:49)
[2018-05-27] MEDS ORDERED: P-EPHED 60MG/TRIPROLIDI 2.5MG TABLET PO PRN (23:49)
[2018-05-27] MEDS ORDERED: ACETAMINOPHEN 325 MG TABLET (FP) PO PRN (23:49)
[2018-05-27] MEDS ORDERED: ALBUTEROL SO4 8 GM HFA INHALER IH PRN (23:50)
[2018-05-28] MEDS ORDERED: chlordiazePOXIDE HCL 25 MG CAPSULE PO ONE (00:15)
[2018-05-28] MEDS ORDERED: chlordiazePOXIDE HCL 25 MG CAPSULE PO PRN (01:23)
[2018-05-28] MEDS: chlordiazePOXIDE HCL 25 MG CAPSULE PO SCH ×6 (01:27→22:25)
[2018-05-28] MEDS ORDERED: chlordiazePOXIDE HCL 25 MG CAPSULE PO SCH (05:00)
[2018-05-28] MEDS: GABAPENTIN 300 MG CAPSULE (FP) PO SCH ×3 (05:22→22:26)
[2018-05-28] MEDS ORDERED: glipiZIDE 5 MG TABLET (FP) ONE (06:23)
[2018-05-28] MEDS: glipiZIDE 10 MG TABLET (FP) PO SCH ×2 (06:29→17:37)
[2018-05-28] MEDS: sitaGLIPtin PHOSPHATE 50 MG TABLET PO SCH (06:29)
[2018-05-28] MEDS ORDERED: THIAMINE HCL 100 MG TABLET (FP) PO SCH (10:00)
[2018-05-28] MEDS: ASPIRIN COATED 81 MG TABLET.EC PO SCH (10:18)
[2018-05-28] MEDS: PRENATAL VITAMINS W/ FOLIC ACID TABLET (FP) PO SCH (10:18)
[2018-05-28] MEDS: NIFEdipine E.R. 30 MG TABLET (FP) PO SCH (10:18)
[2018-05-28] MEDS: CLOPIDOGREL BISULFATE 75 MG TABLET (FP) PO SCH (10:18)
[2018-05-28] MEDS: NICOTINE 21 MG/24 HOURS TOPICAL PATCH TD SCH (10:19)
[2018-05-28] MEDS: BUDESONIDE/FORMETEROL FUMARATE 160/4.5 mcg INHALER IH SCH ×2 (10:20→22:27)
[2018-05-28 11:33] LABS: HEMATOCRIT 32.4 % (35.4-49); HEMOGLOBIN 10.3 GM/dL (11.7-16.9); MCH 29.2 pg (25.7-33.7); MCHC 31.8 g/dl (32.0-35.9); MEAN CELL VOLUME 91.7 fl (80-96); MEAN PLT VOLUME 9.3 fl (7.5-11.1); PLATELET COUNT 157 K/MM3 (134-434); RBC 3.53 M/mm3 (4.00-5.60); RDW 15.8 % (11.9-15.9); WHITE BLOOD COUNT 3.6 K/mm3 (4.0-10.0)
[2018-05-28 11:33] LABS: URINE APPEARANCE CLEAR; URINE BILIRUBIN NEGATIVE (<2.0 mg/dL); URINE COLOR YELLOW; URINE GLUCOSE (UA) 2+ (NEGATIVE); URINE KETONE NEGATIVE (NEGATIVE); URINE LEUK ESTERASE NEGATIVE (NEGATIVE); URINE NITRITE NEGATIVE (NEGATIVE); URINE PROTEIN 2+ (NEGATIVE); URINE UROBILINOGEN NEGATIVE mg/dL (0.2-1.0)
[2018-05-28 11:43] LABS: ALBUMIN 3.3 g/dl (3.4-5.0); ALK PHOS 137 U/L (45-117); ANION GAP 11 MMOL/L (8-16); BILIRUBIN,TOTAL 0.7 mg/dL (0.2-1); BLOOD UREA NITROGEN 8 mg/dL (7-18); CALCIUM 8.9 mg/dL (8.5-10.1); CHLORIDE 95 mmol/L (98-107); CO2 27 mmol/L (21-32); CREATININE 0.8 mg/dL (0.55-1.3); GLUCOSE,RANDOM 289 mg/dL (74-106); POTASSIUM 3.3 mmol/L (3.5-5.1); SGOT/AST 239 U/L (15-37); SGPT/ALT 186 U/L (13-61); SODIUM 134 mmol/L (136-145); TOT PROT 7.4 g/dl (6.4-8.2)
--- NOTE | 2018-05-28 12:02 | PN ---
S CIWA - CIWA Score Nausea/Vomitin Muscle Tremors: 2 Anxiety: 2 Agitation: 2 Paroxysmal Sweats: 1-Minimal Palms Moist Orientation: 0-Oriented Tacttile Disturbances: 1-Very Mild Itch/Numbness Auditory Disturbances: 1-Very Mild Visual Disturbances: 0-None Headache: 2-Mild CIWA-Ar Total Score: 13 [facility] Progress Note (SOAP) Subjective: alert,irritable,anxious,interrupted sleep,tremor Objective: 05/28/18 12:00 Vital Signs Temperature 99.4 F 05/28/18 09:21 Pulse Rate 110 H 05/28/18 11:00 Respiratory Rate 20 05/28/18 11:00 Blood Pressure 147/95 05/28/18 09:21 O2 Sat by Pulse Oximetry (%) 05/28/18 12:01 Laboratory Last Values WBC 3.6 K/mm3 (4.0-10.0) L 05/28/18 07:30 RBC 3.53 M/mm3 (4.00-5.60) L 05/28/18 07:30 Hgb 10.3 GM/dL (11.7-16.9) L 05/28/18 07:30 Hct 32.4 % (35.4-49) L 05/28/18 07:30 MCV 91.7 fl (80-96) 05/28/18 07:30 MCH 29.2 pg (25.7-33.7) 05/28/18 07:30 MCHC 31.8 g/dl (32.0-35.9) L 05/28/18 07:30 RDW 15.8 % (11.9-15.9) 05/28/18 07:30 Plt Count 157 K/MM3 (134-434) 05/28/18 07:30 MPV 9.3 fl (7.5-11.1) 05/28/18 07:30 Sodium 134 mmol/L (136-145) L 05/28/18 07:30 Potassium 3.3 mmol/L (3.5-5.1) L 05/28/18 07:30 Chloride 95 mmol/L (98-107) L 05/28/18 07:30 Carbon Dioxide 27 mmol/L (21-32) 05/28/18 07:30 Anion Gap 11 MMOL/L (8-16) 05/28/18 07:30 BUN 8 mg/dL (7-18) 05/28/18 07:30 Creatinine 0.8 mg/dL (0.55-1.3) 05/28/18 07:30 Creat Clearance w eGFR > 60 (>60) 05/28/18 07:30 POC Glucometer 315 UNITS (80-120) 05/28/18 05:24 Random Glucose 289 mg/dL (74-106) H 05/28/18 07:30 Calcium 8.9 mg/dL (8.5-10.1) 05/28/18 07:30 Total Bilirubin 0.7 mg/dL (0.2-1) 05/28/18 07:30 AST 239 U/L (15-37) H 05/28/18 07:30 ALT 186 U/L (13-61) H 05/28/18 07:30 Alkaline Phosphatase 137 U/L (45-117) H 05/28/18 07:30 Total Protein 7.4 g/dl (6.4-8.2) 05/28/18 07:30 Albumin 3.3 g/dl (3.4-5.0) L 05/28/18 07:30 Urine Color Yellow 05/28/18 08:40 Urine Appearance Clear 05/28/18 08:40 Urine pH 6.0 (5.0-8.0) 05/28/18 08:40 Ur Specific [place] 1.005 (1.010-1.035) L 05/28/18 08:40 Urine Protein 2+ (NEGATIVE) H 05/28/18 08:40 Urine Glucose (UA) 2+ (NEGATIVE) H 05/28/18 08:40 Urine Ketones Negative (NEGATIVE) 05/28/18 08:40 Urine Blood Negative (NEGATIVE) 05/28/18 08:40 Urine Nitrite Negative (NEGATIVE) 05/28/18 08:40 Urine Bilirubin Negative (<2.0 mg/dL) 05/28/18 08:40 Urine Urobilinogen Negative mg/dL (0.2-1.0) 05/28/18 08:40 Ur Leukocyte Esterase Negative (NEGATIVE) 05/28/18 08:40 Assessment: 05/28/18 12:00 withdrawal symptom Plan: continue detox,ast,alt elevation,d/c tylenol, repeat cmp,inr in am
[2018-05-28] MEDS: FINASTERIDE 5 MG TABLET (FP) PO SCH (12:09)
[2018-05-28 12:10] LABS: EPI CELLS RARE /HPF (FEW)
--- NOTE | 2018-05-28 15:43 | EKG ---
Test Reason : Blood Pressure : / mmHG Vent. Rate : 106 BPM Atrial Rate : 106 BPM P-R Int : 154 ms QRS Dur : 078 ms QT Int : 368 ms P-R-T Axes : 058 -44 000 degrees QTc Int : 488 ms SINUS TACHYCARDIA LEFT AXIS DEVIATION CANNOT RULE OUT ANTERIOR INFARCT , AGE UNDETERMINED ABNORMAL ECG WHEN COMPARED WITH ECG OF 28-MAY-2018 01:12, INVERTED T WAVES HAVE REPLACED NONSPECIFIC T WAVE ABNORMALITY IN INFERIOR LEADS Confirmed by JOSELIN FORD MD ([id number]) on 05/28/2018 3:42:53 PM Referred By: Confirmed By:JOSELIN FORD MD
[2018-05-28] MEDS: TAMSULOSIN HCL 0.4 MG CAP PO SCH (22:25)
[2018-05-28] MEDS: THIAMINE HCL 100 MG TABLET (FP) PO SCH (22:25)
[2018-05-28] MEDS: ATORVASTATIN CA 40 MG TABLET (FP) PO SCH (22:25)
[2018-05-29] MEDS ORDERED: chlordiazePOXIDE 5 MG CAPSULE PO SCH (05:00)
[2018-05-29] MEDS: chlordiazePOXIDE HCL 25 MG CAPSULE PO SCH ×4 (06:00→22:20)
[2018-05-29] MEDS: sitaGLIPtin PHOSPHATE 50 MG TABLET PO SCH (06:25)
[2018-05-29] MEDS: GABAPENTIN 300 MG CAPSULE (FP) PO SCH ×3 (06:26→22:19)
[2018-05-29] MEDS: glipiZIDE 10 MG TABLET (FP) PO SCH ×2 (06:26→17:01)
[2018-05-29] MEDS: PRENATAL VITAMINS W/ FOLIC ACID TABLET (FP) PO SCH (10:26)
[2018-05-29] MEDS: CLOPIDOGREL BISULFATE 75 MG TABLET (FP) PO SCH (10:26)
[2018-05-29] MEDS: ASPIRIN COATED 81 MG TABLET.EC PO SCH (10:26)
[2018-05-29] MEDS: NIFEdipine E.R. 30 MG TABLET (FP) PO SCH (10:27)
[2018-05-29] MEDS: NICOTINE 21 MG/24 HOURS TOPICAL PATCH TD SCH (10:27)
[2018-05-29] MEDS: BUDESONIDE/FORMETEROL FUMARATE 160/4.5 mcg INHALER IH SCH ×2 (10:47→22:20)
[2018-05-29] MEDS ORDERED: INSULIN SLIDING SCALE (NOVOLOG) 1 VIAL SQ ONE (12:03)
[2018-05-29] MEDS ORDERED: INSULIN (NOVOLOG) ASPART 100 UNITS/ML 10ML VIAL SQ ONE (12:45)
[2018-05-29] MEDS: FINASTERIDE 5 MG TABLET (FP) PO SCH (13:00)
--- NOTE | 2018-05-29 15:16 | PN ---
S CIWA - CIWA Score Nausea/Vomitin Muscle Tremors: 3 Anxiety: 2 Agitation: 2 Paroxysmal Sweats: 2 Orientation: 0-Oriented Tacttile Disturbances: 0-None Auditory Disturbances: 0-None Visual Disturbances: 0-None Headache: 0-None Present CIWA-Ar Total Score: 11 S Progress Note (SOAP) Subjective: Anxious, restless Objective: 05/29/18 15:13 Last Vital Signs Temp Pulse Resp BP Pulse Ox 95.9 F L 118 H 16 130/85 05/29/18 13:41 05/29/18 13:41 05/29/18 13:41 05/29/18 13:41 Laboratory Tests 05/27/18 05/28/18 05/28/18 22:32 05:24 07:30 WBC 3.6 L RBC 3.53 L Hgb 10.3 L Hct 32.4 L MCV 91.7 MCH 29.2 MCHC 31.8 L RDW 15.8 Plt Count 157 MPV 9.3 Sodium Potassium Chloride Carbon Dioxide Anion Gap BUN Creatinine Creat Clearance w eGFR POC Glucometer 360 315 Random Glucose Calcium Total Bilirubin AST ALT Alkaline Phosphatase Total Protein Albumin Urine Color Urine Appearance Urine pH Ur Specific [place] Urine Protein Urine Glucose (UA) Urine Ketones Urine Blood Urine Nitrite Urine Bilirubin Urine Urobilinogen Ur Leukocyte Esterase Urine WBC (Auto) Urine RBC (Auto) Ur Epithelial Cells RPR Titer 05/28/18 05/28/18 05/28/18 07:30 07:30 08:37 WBC RBC Hgb Hct MCV MCH MCHC RDW Plt Count MPV Sodium 134 L Potassium 3.3 L Chloride 95 L Carbon Dioxide 27 Anion Gap 11 BUN 8 Creatinine 0.8 Creat Clearance w eGFR > 60 POC Glucometer Random Glucose 289 H Calcium 8.9 Total Bilirubin 0.7 AST 239 H ALT 186 H Alkaline Phosphatase 137 H Total Protein 7.4 Albumin 3.3 L Urine Color Cancelled Urine Appearance Cancelled Urine pH Cancelled Ur Specific [place] Cancelled Urine Protein Cancelled Urine Glucose (UA) Cancelled Urine Ketones Cancelled Urine Blood Cancelled Urine Nitrite Cancelled Urine Bilirubin Cancelled Urine Urobilinogen Cancelled Ur Leukocyte Esterase Cancelled Urine WBC (Auto) Urine RBC (Auto) Ur Epithelial Cells RPR Titer Nonreactive 05/28/18 05/28/18 05/29/18 08:40 16:16 06:24 WBC RBC Hgb Hct MCV MCH MCHC RDW Plt Count MPV Sodium Potassium Chloride Carbon Dioxide Anion Gap BUN Creatinine Creat Clearance w eGFR POC Glucometer 369 315 Random Glucose Calcium Total Bilirubin AST ALT Alkaline Phosphatase Total Protein Albumin Urine Color Yellow Urine Appearance Clear Urine pH 6.0 Ur Specific [place] 1.005 L Urine Protein 2+ H Urine Glucose (UA) 2+ H Urine Ketones Negative Urine Blood Negative Urine Nitrite Negative Urine Bilirubin Negative Urine Urobilinogen Negative Ur Leukocyte Esterase Negative Urine WBC (Auto) 1 Urine RBC (Auto) None Ur Epithelial Cells Rare RPR Titer 05/29/18 11:59 WBC RBC Hgb Hct MCV MCH MCHC RDW Plt Count MPV Sodium Potassium Chloride Carbon Dioxide Anion Gap BUN Creatinine Creat Clearance w eGFR POC Glucometer 483 Random Glucose Calcium Total Bilirubin AST ALT Alkaline Phosphatase Total Protein Albumin Urine Color Urine Appearance Urine pH Ur Specific [place] Urine Protein Urine Glucose (UA) Urine Ketones Urine Blood Urine Nitrite Urine Bilirubin Urine Urobilinogen Ur Leukocyte Esterase Urine WBC (Auto) Urine RBC (Auto) Ur Epithelial Cells RPR Titer Labs reviewed: elevated glucose due to DMT2, abnormal UA Assessment: 05/29/18 15:14 Withdrawal symptoms Noted with hyperglycemia and abnormal UA Plan: Continue detox Hyperglycemia due to DMT2: continue regimen, add novolog insulin sliding scale with coverage, novolog insulin 12 units sq x 1 dose for FS of 483mg/dl Abnormal UA: encouraged PO water intake, repeat UA
[2018-05-29] MEDS: INSULIN SLIDING SCALE (NOVOLOG) 1 VIAL SQ SCH (17:01)
[2018-05-29] MEDS: MAG HYDROX/AL HYDROX/SIMETH 30 ML UNIT-DOSE CUP PO PRN (17:21)
[2018-05-29] MEDS: TAMSULOSIN HCL 0.4 MG CAP PO SCH (22:19)
[2018-05-29] MEDS: ATORVASTATIN CA 40 MG TABLET (FP) PO SCH (22:20)
[2018-05-29] MEDS: THIAMINE HCL 100 MG TABLET (FP) PO SCH (22:20)
[2018-05-30] MEDS ORDERED: chlordiazePOXIDE HCL 10 MG CAPSULE PO SCH (05:00)
[2018-05-30] MEDS: chlordiazePOXIDE 5 MG CAPSULE PO SCH ×4 (05:25→22:13)
[2018-05-30] MEDS: GABAPENTIN 300 MG CAPSULE (FP) PO SCH ×3 (05:25→22:13)
[2018-05-30] MEDS ORDERED: INSULIN SLIDING SCALE (NOVOLOG) 1 VIAL SQ ONE (07:39)
[2018-05-30] MEDS: glipiZIDE 10 MG TABLET (FP) PO SCH ×2 (07:41→17:07)
[2018-05-30] MEDS: INSULIN SLIDING SCALE (NOVOLOG) 1 VIAL SQ SCH ×3 (07:41→17:10)
[2018-05-30] MEDS: sitaGLIPtin PHOSPHATE 50 MG TABLET PO SCH (07:41)
[2018-05-30] MEDS: ASPIRIN COATED 81 MG TABLET.EC PO SCH (10:20)
[2018-05-30] MEDS: NIFEdipine E.R. 30 MG TABLET (FP) PO SCH (10:20)
[2018-05-30] MEDS: CLOPIDOGREL BISULFATE 75 MG TABLET (FP) PO SCH (10:20)
[2018-05-30] MEDS: BUDESONIDE/FORMETEROL FUMARATE 160/4.5 mcg INHALER IH SCH ×2 (10:21→22:17)
[2018-05-30] MEDS: PRENATAL VITAMINS W/ FOLIC ACID TABLET (FP) PO SCH (10:23)
[2018-05-30] MEDS: NICOTINE 21 MG/24 HOURS TOPICAL PATCH TD SCH (10:23)
[2018-05-30] MEDS: FINASTERIDE 5 MG TABLET (FP) PO SCH (13:13)
[2018-05-30] MEDS: MAG HYDROX/AL HYDROX/SIMETH 30 ML UNIT-DOSE CUP PO PRN ×2 (16:34→22:17)
--- NOTE | 2018-05-30 16:42 | PN ---
[facility] Progress Note (SOAP) Subjective: generalized pain numbness to fingers sweats some shakes Objective: 05/30/18 16:40 A & O x 3 no acute distress noted Vital Signs Temperature 97 F L 05/30/18 13:05 Pulse Rate 114 H 05/30/18 13:05 Respiratory Rate 18 05/30/18 13:05 Blood Pressure 133/84 05/30/18 13:05 O2 Sat by Pulse Oximetry (%) tachy Assessment: 05/30/18 16:41 withdrawal sx Plan: continue detox increase hydration continue to monitor
[2018-05-30] MEDS: ATORVASTATIN CA 40 MG TABLET (FP) PO SCH (22:13)
[2018-05-30] MEDS: TAMSULOSIN HCL 0.4 MG CAP PO SCH (22:13)
[2018-05-30] MEDS: THIAMINE HCL 100 MG TABLET (FP) PO SCH (22:13)
[2018-05-30 23:12] LABS: URINE APPEARANCE CLEAR; URINE BILIRUBIN NEGATIVE (<2.0 mg/dL); URINE COLOR YELLOW; URINE GLUCOSE (UA) 3+ (NEGATIVE); URINE KETONE NEGATIVE (NEGATIVE); URINE LEUK ESTERASE NEGATIVE (NEGATIVE); URINE NITRITE NEGATIVE (NEGATIVE); URINE PROTEIN NEGATIVE (NEGATIVE); URINE UROBILINOGEN 4.0 E.U/dl mg/dL (0.2-1.0)
[2018-05-31] MEDS: GABAPENTIN 300 MG CAPSULE (FP) PO SCH ×3 (05:55→22:07)
[2018-05-31] MEDS: chlordiazePOXIDE HCL 10 MG CAPSULE PO SCH ×4 (05:56→22:06)
[2018-05-31] MEDS: glipiZIDE 10 MG TABLET (FP) PO SCH ×2 (06:15→17:18)
[2018-05-31] MEDS: sitaGLIPtin PHOSPHATE 100 MG TABLET (FP) PO SCH (06:15)
[2018-05-31] MEDS ORDERED: INSULIN SLIDING SCALE (NOVOLOG) 1 VIAL SQ ONE (08:23)
[2018-05-31] MEDS: INSULIN SLIDING SCALE (NOVOLOG) 1 VIAL SQ SCH ×3 (08:24→17:17)
[2018-05-31] MEDS: ASPIRIN COATED 81 MG TABLET.EC PO SCH (10:34)
[2018-05-31] MEDS: BUDESONIDE/FORMETEROL FUMARATE 160/4.5 mcg INHALER IH SCH ×2 (10:34→22:08)
[2018-05-31] MEDS: NICOTINE 21 MG/24 HOURS TOPICAL PATCH TD SCH (10:35)
[2018-05-31] MEDS: CLOPIDOGREL BISULFATE 75 MG TABLET (FP) PO SCH (10:35)
[2018-05-31] MEDS: NIFEdipine E.R. 30 MG TABLET (FP) PO SCH (10:35)
[2018-05-31] MEDS: FINASTERIDE 5 MG TABLET (FP) PO SCH (10:35)
[2018-05-31] MEDS: PRENATAL VITAMINS W/ FOLIC ACID TABLET (FP) PO SCH (10:36)
[2018-05-31] MEDS ORDERED: PANTOPRAZOLE 40 MG TABLET (FP) PO ONE (10:39)
--- NOTE | 2018-05-31 13:16 | PN ---
[facility] Progress Note (SOAP) Subjective: Tremor, interrupted sleep, sweating; c/o right arm and right shoulder pain ( chronic) stating he fell in the past and was evaluated at an ER in which he had ct scan done which was negative. High Wire Artist instructed patient to take motrin prn and to see his PCP for referral to orthopedist. Patient is concerned about his high finger sticks. High Wire Artist educated patient on avoiding sugary intake and to drink more water. Objective: 05/31/18 13:13 Last Vital Signs Temp Pulse Resp BP Pulse Ox 97.7 F 89 18 134/80 05/31/18 06:26 05/31/18 06:26 05/31/18 06:30 05/31/18 06:26 Laboratory Tests 05/27/18 05/28/18 05/28/18 22:32 05:24 07:30 WBC 3.6 L RBC 3.53 L Hgb 10.3 L Hct 32.4 L MCV 91.7 MCH 29.2 MCHC 31.8 L RDW 15.8 Plt Count 157 MPV 9.3 Sodium Potassium Chloride Carbon Dioxide Anion Gap BUN Creatinine Creat Clearance w eGFR POC Glucometer 360 315 Random Glucose Calcium Total Bilirubin AST ALT Alkaline Phosphatase Total Protein Albumin Urine Color Urine Appearance Urine pH Ur Specific [place] Urine Protein Urine Glucose (UA) Urine Ketones Urine Blood Urine Nitrite Urine Bilirubin Urine Urobilinogen Ur Leukocyte Esterase Urine WBC (Auto) Urine RBC (Auto) Ur Epithelial Cells RPR Titer 05/28/18 05/28/18 05/28/18 07:30 07:30 08:37 WBC RBC Hgb Hct MCV MCH MCHC RDW Plt Count MPV Sodium 134 L Potassium 3.3 L Chloride 95 L Carbon Dioxide 27 Anion Gap 11 BUN 8 Creatinine 0.8 Creat Clearance w eGFR > 60 POC Glucometer Random Glucose 289 H Calcium 8.9 Total Bilirubin 0.7 AST 239 H ALT 186 H Alkaline Phosphatase 137 H Total Protein 7.4 Albumin 3.3 L Urine Color Cancelled Urine Appearance Cancelled Urine pH Cancelled Ur Specific [place] Cancelled Urine Protein Cancelled Urine Glucose (UA) Cancelled Urine Ketones Cancelled Urine Blood Cancelled Urine Nitrite Cancelled Urine Bilirubin Cancelled Urine Urobilinogen Cancelled Ur Leukocyte Esterase Cancelled Urine WBC (Auto) Urine RBC (Auto) Ur Epithelial Cells RPR Titer Nonreactive 05/28/18 05/28/1818 08:40 16:16 06:24 WBC RBC Hgb Hct MCV MCH MCHC RDW Plt Count MPV Sodium Potassium Chloride Carbon Dioxide Anion Gap BUN Creatinine Creat Clearance w eGFR POC Glucometer 369 315 Random Glucose Calcium Total Bilirubin AST ALT Alkaline Phosphatase Total Protein Albumin Urine Color Yellow Urine Appearance Clear Urine pH 6.0 Ur Specific [place] 1.005 L Urine Protein 2+ H Urine Glucose (UA) 2+ H Urine Ketones Negative Urine Blood Negative Urine Nitrite Negative Urine Bilirubin Negative Urine Urobilinogen Negative Ur Leukocyte Esterase Negative Urine WBC (Auto) 1 Urine RBC (Auto) None Ur Epithelial Cells Rare RPR Titer 05/29/18 05/29/18 05/30/18 11:59 16:13 05:24 WBC RBC Hgb Hct MCV MCH MCHC RDW Plt Count MPV Sodium Potassium Chloride Carbon Dioxide Anion Gap BUN Creatinine Creat Clearance w eGFR POC Glucometer 483 332 362 Random Glucose Calcium Total Bilirubin AST ALT Alkaline Phosphatase Total Protein Albumin Urine Color Urine Appearance Urine pH Ur Specific [place] Urine Protein Urine Glucose (UA) Urine Ketones Urine Blood Urine Nitrite Urine Bilirubin Urine Urobilinogen Ur Leukocyte Esterase Urine WBC (Auto) Urine RBC (Auto) Ur Epithelial Cells RPR Titer 05/30/18 05/30/18 05/30/18 11:38 16:29 17:04 WBC RBC Hgb Hct MCV MCH MCHC RDW Plt Count MPV Sodium Potassium Chloride Carbon Dioxide Anion Gap BUN Creatinine Creat Clearance w eGFR POC Glucometer 351 344 Random Glucose Calcium Total Bilirubin AST ALT Alkaline Phosphatase Total Protein Albumin Urine Color Yellow Urine Appearance Clear Urine pH 7.0 Ur Specific [place] 1.026 Urine Protein Negative Urine Glucose (UA) 3+ H Urine Ketones Negative Urine Blood Negative Urine Nitrite Negative Urine Bilirubin Negative Urine Urobilinogen 4.0 e.u/dl Ur Leukocyte Esterase Negative Urine WBC (Auto) Urine RBC (Auto) Ur Epithelial Cells RPR Titer 05/31/18 05/31/18 05:55 11:37 WBC RBC Hgb Hct MCV MCH MCHC RDW Plt Count MPV Sodium Potassium Chloride Carbon Dioxide Anion Gap BUN Creatinine Creat Clearance w eGFR POC Glucometer 287 430 Random Glucose Calcium Total Bilirubin AST ALT Alkaline Phosphatase Total Protein Albumin Urine Color Urine Appearance Urine pH Ur Specific [place] Urine Protein Urine Glucose (UA) Urine Ketones Urine Blood Urine Nitrite Urine Bilirubin Urine Urobilinogen Ur Leukocyte Esterase Urine WBC (Auto) Urine RBC (Auto) Ur Epithelial Cells RPR Titer Labs reviewed: K 3.3; finger sticks > 200; UA shows 3+ glucose 05/31/18 13:19 Assessment: 05/31/18 13:13 Withdrawal symptoms DM uncontrolled Noted with hypokalemia and glycosuria Plan: Continue detox DMT2 with hyperglycemia: continue regimen, change insulin novolog sliding scale coverage to start coverage at 150mg/dl for tighter glycemic control Hypokalemia: give K Dur 40 Meq PO x 2 doses, repeat serum K level in AM Glycosuria secondary to DMT2: encouraged PO water intake, continue diabetic regimen
[2018-05-31] MEDS ORDERED: POTASSIUM CHLORIDE TABS 20 MEQ TABLET.ER (FP) PO ONE ×2 (13:24→21:00)
[2018-05-31] MEDS: MAG HYDROX/AL HYDROX/SIMETH 30 ML UNIT-DOSE CUP PO PRN (18:00)
[2018-05-31] MEDS: TAMSULOSIN HCL 0.4 MG CAP PO SCH (22:06)
[2018-05-31] MEDS: THIAMINE HCL 100 MG TABLET (FP) PO SCH (22:06)
[2018-05-31] MEDS: ATORVASTATIN CA 40 MG TABLET (FP) PO SCH (22:06)
[2018-06-01] MEDS: GABAPENTIN 300 MG CAPSULE (FP) PO SCH (05:57)
[2018-06-01 06:30] VITALS: PULSE 93
[2018-06-01] MEDS: glipiZIDE 10 MG TABLET (FP) PO SCH (06:34)
[2018-06-01] MEDS: sitaGLIPtin PHOSPHATE 100 MG TABLET (FP) PO SCH (06:34)
[2018-06-01] MEDS: PANTOPRAZOLE 40 MG TABLET (FP) PO SCH ×2 (06:34→10:09)
[2018-06-01] MEDS ORDERED: INSULIN SLIDING SCALE (NOVOLOG) 1 VIAL SQ ONE (07:59)
[2018-06-01] MEDS: INSULIN SLIDING SCALE (NOVOLOG) 1 VIAL SQ SCH ×2 (08:18→11:20)
[2018-06-01] MEDS: NIFEdipine E.R. 30 MG TABLET (FP) PO SCH (10:08)
[2018-06-01] MEDS: FINASTERIDE 5 MG TABLET (FP) PO SCH (10:08)
[2018-06-01] MEDS: CLOPIDOGREL BISULFATE 75 MG TABLET (FP) PO SCH (10:08)
[2018-06-01 10:09] VITALS: BP 114/73; TEMP 96.1
[2018-06-01] MEDS: ASPIRIN COATED 81 MG TABLET.EC PO SCH (10:09)
[2018-06-01] MEDS: PRENATAL VITAMINS W/ FOLIC ACID TABLET (FP) PO SCH (10:09)
[2018-06-01] MEDS: NICOTINE 21 MG/24 HOURS TOPICAL PATCH TD SCH (10:09)
[2018-06-01] MEDS: BUDESONIDE/FORMETEROL FUMARATE 160/4.5 mcg INHALER IH SCH (10:10)
[2018-06-01] MEDS: MAG HYDROX/AL HYDROX/SIMETH 30 ML UNIT-DOSE CUP PO PRN (10:11)
--- NOTE | 2018-06-01 16:40 | DS ---
[facility] Detox Discharge Summary Admission Date: 05/27/18 Discharge Date: 06/01/18 - History Present History: Alcohol Dependence Additional Comments: PATIENT GOING TO [facility] ([place] FOR AFTERCARE. PATIENT WAS DISCHARGED FROM DETOX UNIT IN STABLE MEDICAL CONDITION. Pertinent Past History: C.O.P.D., HTN, Asthma, History of Depression, Type II DM, Hep C, G.E.R.D., BPH, Nicotine Dependence, Hypercholesterolemia, History of Anemia, History of Insomnia. - Physical Exam Results Vital Signs: Vital Signs Temperature 96.1 F L 06/01/18 10:08 Pulse Rate 93 H 06/01/18 10:08 Respiratory Rate 20 06/01/18 10:08 Blood Pressure 114/73 06/01/18 10:08 O2 Sat by Pulse Oximetry (%) Pertinent Admission Physical Exam Findings: WITHDRAWAL SYMPTOMS. Laboratory Tests 05/27/18 05/28/18 05/28/18 22:32 05:24 07:30 WBC 3.6 L RBC 3.53 L Hgb 10.3 L Hct 32.4 L MCV 91.7 MCH 29.2 MCHC 31.8 L RDW 15.8 Plt Count 157 MPV 9.3 Sodium Potassium Chloride Carbon Dioxide Anion Gap BUN Creatinine Creat Clearance w eGFR POC Glucometer 360 315 Random Glucose Calcium Total Bilirubin AST ALT Alkaline Phosphatase Total Protein Albumin Urine Color Urine Appearance Urine pH Ur Specific [place] Urine Protein Urine Glucose (UA) Urine Ketones Urine Blood Urine Nitrite Urine Bilirubin Urine Urobilinogen Ur Leukocyte Esterase Urine WBC (Auto) Urine RBC (Auto) Ur Epithelial Cells RPR Titer 05/28/18 05/28/18 05/28/18 07:30 07:30 08:37 WBC RBC Hgb Hct MCV MCH MCHC RDW Plt Count MPV Sodium 134 L Potassium 3.3 L Chloride 95 L Carbon Dioxide 27 Anion Gap 11 BUN 8 Creatinine 0.8 Creat Clearance w eGFR > 60 POC Glucometer Random Glucose 289 H Calcium 8.9 Total Bilirubin 0.7 AST 239 H ALT 186 H Alkaline Phosphatase 137 H Total Protein 7.4 Albumin 3.3 L Urine Color Cancelled Urine Appearance Cancelled Urine pH Cancelled Ur Specific [place] Cancelled Urine Protein Cancelled Urine Glucose (UA) Cancelled Urine Ketones Cancelled Urine Blood Cancelled Urine Nitrite Cancelled Urine Bilirubin Cancelled Urine Urobilinogen Cancelled Ur Leukocyte Esterase Cancelled Urine WBC (Auto) Urine RBC (Auto) Ur Epithelial Cells RPR Titer Nonreactive 05/28/18 05/28/18 05/29/18 08:40 16:16 06:24 WBC RBC Hgb Hct MCV MCH MCHC RDW Plt Count MPV Sodium Potassium Chloride Carbon Dioxide Anion Gap BUN Creatinine Creat Clearance w eGFR POC Glucometer 369 315 Random Glucose Calcium Total Bilirubin AST ALT Alkaline Phosphatase Total Protein Albumin Urine Color Yellow Urine Appearance Clear Urine pH 6.0 Ur Specific [place] 1.005 L Urine Protein 2+ H Urine Glucose (UA) 2+ H Urine Ketones Negative Urine Blood Negative Urine Nitrite Negative Urine Bilirubin Negative Urine Urobilinogen Negative Ur Leukocyte Esterase Negative Urine WBC (Auto) 1 Urine RBC (Auto) None Ur Epithelial Cells Rare RPR Titer 05/29/18 05/29/18 05/30/18 11:59 16:13 05:24 WBC RBC Hgb Hct MCV MCH MCHC RDW Plt Count MPV Sodium Potassium Chloride Carbon Dioxide Anion Gap BUN Creatinine Creat Clearance w eGFR POC Glucometer 483 332 362 Random Glucose Calcium Total Bilirubin AST ALT Alkaline Phosphatase Total Protein Albumin Urine Color Urine Appearance Urine pH Ur Specific [place] Urine Protein Urine Glucose (UA) Urine Ketones Urine Blood Urine Nitrite Urine Bilirubin Urine Urobilinogen Ur Leukocyte Esterase Urine WBC (Auto) Urine RBC (Auto) Ur Epithelial Cells RPR Titer 05/30/18 05/30/18 05/30/18 11:38 16:29 17:04 WBC RBC Hgb Hct MCV MCH MCHC RDW Plt Count MPV Sodium Potassium Chloride Carbon Dioxide Anion Gap BUN Creatinine Creat Clearance w eGFR POC Glucometer 351 344 Random Glucose Calcium Total Bilirubin AST ALT Alkaline Phosphatase Total Protein Albumin Urine Color Yellow Urine Appearance Clear Urine pH 7.0 Ur Specific [place] 1.026 Urine Protein Negative Urine Glucose (UA) 3+ H Urine Ketones Negative Urine Blood Negative Urine Nitrite Negative Urine Bilirubin Negative Urine Urobilinogen 4.0 e.u/dl Ur Leukocyte Esterase Negative Urine WBC (Auto) Urine RBC (Auto) Ur Epithelial Cells RPR Titer 05/31/18 05/31/18 06/01/18 05:55 11:37 05:56 WBC RBC Hgb Hct MCV MCH MCHC RDW Plt Count MPV Sodium Potassium Chloride Carbon Dioxide Anion Gap BUN Creatinine Creat Clearance w eGFR POC Glucometer 287 430 365 Random Glucose Calcium Total Bilirubin AST ALT Alkaline Phosphatase Total Protein Albumin Urine Color Urine Appearance Urine pH Ur Specific [place] Urine Protein Urine Glucose (UA) Urine Ketones Urine Blood Urine Nitrite Urine Bilirubin Urine Urobilinogen Ur Leukocyte Esterase Urine WBC (Auto) Urine RBC (Auto) Ur Epithelial Cells RPR Titer 06/01/18 06/01/18 07:10 11:13 WBC RBC Hgb Hct MCV MCH MCHC RDW Plt Count MPV Sodium Potassium 4.7 Chloride Carbon Dioxide Anion Gap BUN Creatinine Creat Clearance w eGFR POC Glucometer 360 Random Glucose Calcium Total Bilirubin AST ALT Alkaline Phosphatase Total Protein Albumin Urine Color Urine Appearance Urine pH Ur Specific [place] Urine Protein Urine Glucose (UA) Urine Ketones Urine Blood Urine Nitrite Urine Bilirubin Urine Urobilinogen Ur Leukocyte Esterase Urine WBC (Auto) Urine RBC (Auto) Ur Epithelial Cells RPR Titer LABS NOTED. - Treatment Hospital Course: Detox Protocol Followed, Detoxed Safely, Responded well, Discharged Condition Good, Rehab Referral Accepted Patient has Accepted a Rehab Referral to: [facility] ([place] - Medication Discharge Medications: Ambulatory Orders Albuterol Sulfate Inhaler - [Ventolin HFA Inhaler -] 2 inh IH Q4H PRN 05/08/16 Aspirin [Aspirin EC] 81 mg PO DAILY 01/19/18 Atorvastatin Ca [Lipitor] 40 mg PO HS 01/19/18 Budesonide/Formeterol Fumarate [SYMBICORT 160/4.5mcg -] 1 inh PO BID 01/19/18 Clopidogrel Bisulfate [Clopidogrel] 75 mg PO DAILY 01/19/18 Finasteride [Proscar -] 5 mg PO DAILY 01/19/18 Folic Acid - 1 mg PO DAILY 01/19/18 Glipizide [Glucotrol -] 10 mg PO BID 01/19/18 Multivitamins [Tab-A-Vit -] 1 tab PO DAILY 01/19/18 Tamsulosin HCl [Flomax] 0.4 mg PO HS 01/19/18 Thiamine HCl [Vitamin B-1] 100 mg PO DAILY 01/19/18 Albuterol Sulfate Inhaler - [Ventolin HFA Inhaler -] 2 puff IH Q4H PRN #1 inhaler 02/03/18 Aspirin Coated [Ecotrin -] 81 mg PO DAILY #30 tablet.ec 02/03/18 Atorvastatin Ca [Lipitor] 40 mg PO HS #30 tablet 02/03/18 Budesonide/Formeterol Fumarate [SYMBICORT 160/4.5mcg -] 2 puff IH BID #1 inhaler 02/03/18 Clopidogrel Bisulfate [Plavix -] 75 mg PO DAILY@0700 #30 tablet 02/03/18 Finasteride [Proscar -] 5 mg PO DAILY #30 tablet 02/03/18 Gabapentin [Neurontin -] 600 mg PO TID #21 capsule 02/03/18 Nifedipine ER [Procardia XL -] 30 mg PO DAILY #30 tab.er.24 02/03/18 Omeprazole 20 mg PO DAILY #30 tablet.dr 02/03/18 Tamsulosin HCl [Flomax -] 0.4 mg PO HS #30 cap.er.24h 02/03/18 Thiamine HCl [Vitamin B1 -] 100 mg PO HS #30 tablet 02/03/18 Nicotine Polacrilex [Nicotine Gum] 2 mg BC Q3H6XD #90 gum 02/07/18 Nicotine [Nicotine Patch 21 mg/24 hr] 1 each TD DAILY #30 patch.td24 02/07/18 Metoprolol Tartrate 25 mg PO BID 05/27/18 Omeprazole 20 mg PO DAILY 05/27/18 Glipizide [Glucotrol -] 10 mg PO BID@0700,1630 #60 tablet 06/01/18 Nifedipine ER [Procardia Xl -] 30 mg PO DAILY #30 tab.er.24 06/01/18 Sitagliptin Phosphate [Januvia -] 100 mg PO DAILY@0700 #30 tablet 06/01/18 - Diagnosis (1) Alcohol dependence with uncomplicated withdrawal Status: Acute (2) Hepatitis C Status: Acute Qualifiers: Viral hepatitis chronicity: unspecified Hepatic coma status: without hepatic coma Qualified Code(s): B19.20 - Unspecified viral hepatitis C without hepatic coma (3) Asthma Status: Chronic Qualifiers: Asthma severity: moderate Asthma persistence: unspecified Asthma complication type: unspecified Qualified Code(s): J45.909 - Unspecified asthma , uncomplicated (4) BPH (benign prostatic hyperplasia) Status: Chronic Qualifiers: Lower urinary tract symptom presence: unspecified whether lower urinary tract symptoms present Qualified Code(s): N40.0 - Benign prostatic hyperplasia without lower urinary tract symptoms (5) COPD (chronic obstructive pulmonary disease) Status: Chronic Qualifiers: COPD type: emphysema Emphysema type: unilateral Qualified Code(s): J43.0 - Unilateral pulmonary emphysema [MacLeod's syndrome] (6) DM type 2 (diabetes mellitus, type 2) Status: Chronic Qualifiers: Diabetes mellitus complication status: with unspecified complications (7) GERD (gastroesophageal reflux disease) Status: Chronic Qualifiers: Esophagitis presence: esophagitis presence not specified Qualified Code(s) : K21.9 - Gastro-esophageal reflux disease without esophagitis (8) HTN (hypertension) Status: Chronic Qualifiers: Hypertension type: essential hypertension Qualified Code(s): I10 - Essential (primary) hypertension (9) Nicotine dependence Status: Chronic Qualifiers: Nicotine product type: cigarettes Substance use status: in withdrawal Qualified Code(s): F17.213 - Nicotine dependence, cigarettes, with withdrawal (10) Anemia Status: Chronic Qualifiers: Anemia type: unspecified type Qualified Code(s): D64.9 - Anemia, unspecified (11) Insomnia Status: Chronic Qualifiers: Insomnia type: unspecified Qualified Code(s): G47.00 - Insomnia, unspecified - AMA Did Patient Leave Against Medical Advice: No
--- NOTE | 2018-08-02 11:43 | EKG ---
Test Reason : Blood Pressure : / mmHG Vent. Rate : 118 BPM Atrial Rate : 118 BPM P-R Int : 144 ms QRS Dur : 080 ms QT Int : 350 ms P-R-T Axes : 065 -39 036 degrees QTc Int : 490 ms SINUS TACHYCARDIA POSSIBLE LEFT ATRIAL ENLARGEMENT LEFT AXIS DEVIATION ABNORMAL ECG WHEN COMPARED WITH ECG OF 19-JAN-2018 15:34, NO SIGNIFICANT CHANGE WAS FOUND Confirmed by Festus Babcock MD ([id number]) on 08/02/2018 11:42:36 AM Referred By: Confirmed By:Festus Babcock MD
== END 2018-06-01 12:45 | disposition home or self-care (01) | DRG 774 ==
LOC: YASAS 16:11 → Y3N 23:00
PROC: HZ2ZZZZ Detoxification Services for Substance Abuse Treatment (ICD-10-PCS; principal; 2018-05-27)
DX: F10.230 Alcohol dependence with withdrawal, uncomplicated (principal); F14.20 Cocaine dependence, uncomplicated; F17.210 Nicotine dependence, cigarettes, uncomplicated; F32.9 Major depressive disorder, single episode, unspecified; F20.0 Paranoid schizophrenia; I10 Essential (primary) hypertension; B19.20 Unspecified viral hepatitis C without hepatic coma; J45.909 Unspecified asthma, uncomplicated; K21.9 Gastro-esophageal reflux disease without esophagitis; N40.0 Benign prostatic hyperplasia without lower urinary tract symptoms; J43.0 Unilateral pulmonary emphysema [MacLeod's syndrome]; E11.65 Type 2 diabetes mellitus with hyperglycemia; D64.9 Anemia, unspecified; G47.00 Insomnia, unspecified; E78.00 Pure hypercholesterolemia, unspecified; R81 Glycosuria; R82.90 Unspecified abnormal findings in urine; R00.0 Tachycardia, unspecified; Z88.0 Allergy status to penicillin; Z79.84 Long term (current) use of oral hypoglycemic drugs
CPT/HCPCS: 36415; 80053; 81003; 81015; 82962; 84132; 85027; 86593; 93005; 93010

== ENCOUNTER 2019-07-28 15:19 | Inpatient (IN) | payer OTHER ==
--- NOTE | 2019-07-28 16:30 | BHS.RME ---
Substance Use & Tx History - Last Treatment Where was last treatment: Detox CIWA Nausea/Vomitin (vomiting x 3) Muscle Tremors: 3 Anxiety: 3 Agitation: 3 Paroxysmal Sweats: 2 Orientation: 0-Oriented Tacttile Disturbances: 0-None Auditory Disturbances: 0-None Visual Disturbances: 0-None Headache: 4-Moderately Severe CIWA-Ar Total Score: 18
--- NOTE | 2019-07-28 16:33 | HP ---
CIWA Score Nausea/Vomitin (vomiting x 3) Muscle Tremors: 3 Anxiety: 3 Agitation: 3 Paroxysmal Sweats: 2 Orientation: 0-Oriented Tacttile Disturbances: 0-None Auditory Disturbances: 0-None Visual Disturbances: 0-None Headache: 4-Moderately Severe CIWA-Ar Total Score: 18 - Admission Criteria OASAS Guidelines: Admission for Medically Managed Detox: Requires at least one of the followin. CIWA greater than 12 2. Seizures within the past 24 hours 3. Delirium tremens within the past 24 hours 4. Hallucinations within the past 24 hours 5. Acute intervention needed for co occurring medical disorder 6. Acute intervention needed for co occurring psychiatric disorder 7. Severe withdrawal that cannot be handled at a lower level of care (continued vomiting, continued diarrhea, abnormal vital signs) requiring intravenous medication and/or fluids 8. Admitting History and Physical - Smoking History Smoking history: Current every day smoker Have you smoked in the past 12 months: Yes Aproximately how many cigarettes per day: 10 - Alcohol/Substance Use Hx Alcohol Use: Yes Admission ROS [facility] Chief Complaint: Alcohol withdrawal symptoms Allergies/Adverse Reactions: Allergies Allergy/AdvReac Type Severity Reaction Status Date / Time Penicillins Allergy Severe diarrhea Verified 07/28/19 17:42 History of Present Illness: 64 years old male with 32 years of alcohol dependence is seeking admission to detox. Patient has had multiple detox admissions and reports ten months of sobriety. His last admission to [facility] was from the period 05/27/2018 - 2017 and he reports that his last detox was at [facility]. He has medical history of Hypertension, DM Type 2, Hyperlipidemia, BPH, GERD, Hep C, COPD, asthma, Anemia and psych. history of bipolar disorder, PTSD, anxiety, insomnia and depression. He denies suicidal ideation at this time. Exam Limitations: No Limitations - Ebola screening Have you had contact with anyone from an Ebola affected area: No Do you have a fever: No - Review of Systems Constitutional: Chills, Malaise, Night Sweats, Changes in sleep EENT: reports: No Symptoms Reported, Nose Congestion Respiratory: reports: No Symptoms reported Cardiac: reports: No Symptoms Reported GI: reports: Nausea, Poor Appetite, Poor Fluid Intake, Vomiting, Abdominal cramping : reports: No Symptoms Reported Musculoskeletal: reports: Back Pain, Muscle Pain Integumentary: reports: Dryness, Flushing Neuro: reports: Headache, Tremors Endocrine: reports: Increased Urine (H/O BPH) Hematology: reports: No Symptoms Reported Psychiatric: reports: Orientated x3, Anxious, Depressed Other Systems: Reviewed and Negative Patient History - Patient Medical History Hx Anemia: No Hx Asthma: Yes (Albuterol) Hx Chronic Obstructive Pulmonary Disease (COPD): Yes Hx Cancer: No Hx Cardiac Disorders: No Hx Congestive Heart Failure: No Hx Hypertension: Yes (Metoprolol, Proscar, Procardia) Hx Hypercholesterolemia: Yes Hx Pacemaker: No HX Cerebrovascular Accident: No Hx Seizures: No Hx Dementia: No Hx Diabetes: Yes (Glipizide, [place]) Hx Gastrointestinal Disorders: Yes (GERD- Omeprazole) Hx Liver Disease: No Hx Genitourinary Disorders: Yes (BPH) Hx Sexually Transmitted Disorders: No Hx Renal Disease (ESRD): No Hx Thyroid Disease: No Hx Human Immunodeficiency Virus (HIV): No ( LAST NEGATIVE one year ago ) Hx Hepatitis C: Yes (Not on medication) Hx Depression: Yes (Not on medication) Hx Suicide Attempt: No (Denies suicidal ideation at this time) Hx Bipolar Disorder: No Hx Schizophrenia: No Other Medical History: Anxiety, PTSD - Patient Surgical History Past Surgical History: Yes Hx Neurologic Surgery: No Hx Cataract Extraction: No Hx Cardiac Surgery: No Hx Lung Surgery: No Hx Breast Surgery: No Hx Breast Biopsy: No Hx Abdominal Surgery: No Hx Appendectomy: No Hx Cholecystectomy: No Hx Genitourinary Surgery: No Hx Section: No Hx Orthopedic Surgery: No Other Surgical History: right inguinal hernia repair Anesthesia Reaction: No - PPD History Previous Implant?: No (PPD POSITIVE. TREATED WITH INH AT [facility]) Documented Results: Positive w/o proof Implanted On Prior [facility] Admission?: No PPD to be Administered?: No - Reproductive History Patient is a Female of Child Bearing Age (11 -55 yrs old): No (MALE) - Smoking Cessation Smoking history: Current every day smoker Have you smoked in the past 12 months: Yes Aproximately how many cigarettes per day: 10 Hx Chewing Tobacco Use: No Initiated information on smoking cessation: Yes 'Breaking Loose' booklet given: 07/28/19 - Substance & Tx. History Hx Alcohol Use: Yes Hx Substance Use: No Substance Use Type: Alcohol Hx Substance Use Treatment: Yes ( [facility]) - Substances abused Alcohol Substance route: Oral Frequency: Daily Amount used: 2 QUARTS OF VODKA DAILY Age of first use: 20 Date of last use: 07/28/19 Cocaine Substance route: Injection Frequency: Daily Amount used: $100 WORTH Age of first use: 20 Date of last use: 07/21/19 Admission Physical Exam [facility] - Physical General Appearance: Yes: Severe Distress, Tremorous, Irritable, Anxious HEENTM: Yes: Nasal Congestion Respiratory: Yes: Lungs Clear, Normal Breath Sounds, No Respiratory Distress Neck: Yes: Within Normal Limits Breast: Yes: Breast Exam Deferred Cardiology: Yes: Tachycardia Abdominal: Yes: Normal Bowel Sounds Genitourinary: Yes: Within Normal Limits Back: Yes: Normal Inspection Musculoskeletal: Yes: Back pain, Muscle Pain Extremities: Yes: Tremors Neurological: Yes: Within Normal Limits Integumentary: Yes: Warm Lymphatic: Yes: Within Normal Limits - Diagnostic (1) Alcohol dependence with uncomplicated withdrawal Current Visit: Yes Status: Acute (2) Hepatitis C Current Visit: Yes Status: Chronic Qualifiers: Viral hepatitis chronicity: unspecified Hepatic coma status: without hepatic coma Qualified Code(s): B19.20 - Unspecified viral hepatitis C without hepatic coma (3) Non-compliance with treatment Current Visit: Yes Status: Chronic (4) Anemia Current Visit: Yes Status: Chronic Qualifiers: Anemia type: unspecified type Qualified Code(s): D64.9 - Anemia, unspecified (5) Asthma Current Visit: Yes Status: Chronic Qualifiers: Asthma severity: moderate Asthma persistence: unspecified Asthma complication type: unspecified Qualified Code(s): J45.909 - Unspecified asthma , uncomplicated (6) BPH (benign prostatic hyperplasia) Current Visit: Yes Status: Chronic Qualifiers: Lower urinary tract symptom presence: unspecified whether lower urinary tract symptoms present Qualified Code(s): N40.0 - Benign prostatic hyperplasia without lower urinary tract symptoms (7) COPD (chronic obstructive pulmonary disease) Current Visit: Yes Status: Chronic Qualifiers: COPD type: emphysema Emphysema type: unilateral Qualified Code(s): J43.0 - Unilateral pulmonary emphysema [MacLeod's syndrome] (8) DM type 2 (diabetes mellitus, type 2) Current Visit: Yes Status: Chronic Qualifiers: Diabetes mellitus complication status: with unspecified complications (9) Diabetes mellitus Current Visit: Yes Status: Chronic Qualifiers: Diabetes mellitus type: type 2 Diabetes mellitus complication status: with other specified complication (10) GERD (gastroesophageal reflux disease) Current Visit: Yes Status: Chronic Qualifiers: Esophagitis presence: esophagitis presence not specified Qualified Code(s) : K21.9 - Gastro-esophageal reflux disease without esophagitis (11) HTN (hypertension) Current Visit: Yes Status: Chronic Qualifiers: Hypertension type: essential hypertension Qualified Code(s): I10 - Essential (primary) hypertension (12) Hep C w/o coma, chronic Current Visit: Yes Status: Chronic (13) Hypercholesterolemia Current Visit: Yes Status: Chronic (14) Insomnia Current Visit: Yes Status: Chronic Qualifiers: Insomnia type: unspecified Qualified Code(s): G47.00 - Insomnia, unspecified Comment: On melatonin. (15) Nicotine dependence Current Visit: Yes Status: Chronic Qualifiers: Nicotine product type: cigarettes Substance use status: in withdrawal Qualified Code(s): F17.213 - Nicotine dependence, cigarettes, with withdrawal Cleared for Admission [facility] - Detox or Rehab [facility] Level of Care: Medically Managed Detox Regimen/Protocol: Librium Claeared for Rehab Admission: No Inpatient Rehab Admission - Rehab Decision to Admit Inpatient rehab admission?: No
[2019-07-28] MEDS ORDERED: MAGNESIUM HYDROX 2400MG/30ML ORAL SUSPENSION 30 ML CUP PO PRN (16:55)
[2019-07-28] MEDS ORDERED: MENTHOL/PHENOL 1 EACH UD MM PRN (16:55)
[2019-07-28] MEDS ORDERED: MAG HYDROX/AL HYDROX/SIMETH 30 ML UNIT-DOSE CUP PO PRN (16:55)
[2019-07-28] MEDS ORDERED: chlordiazePOXIDE HCL 25 MG CAPSULE PO PRN (16:55)
[2019-07-28] MEDS ORDERED: MAGNESIUM CITRATE 300 ML BOTTLE PO PRN (16:55)
[2019-07-28] MEDS ORDERED: IBUPROFEN 400 MG TABLET (FP) PO PRN (16:55)
[2019-07-28] MEDS ORDERED: ACETAMINOPHEN 325 MG TABLET (FP) PO PRN ×2 (16:55)
[2019-07-28 17:48] VITALS: BMI 24.9
[2019-07-28] MEDS ORDERED: COLLOIDAL OATMEAL 1 BAR EACH TP PRN (18:09)
[2019-07-28] MEDS: chlordiazePOXIDE HCL 25 MG CAPSULE PO SCH ×2 (19:49→22:37)
[2019-07-28] MEDS: NICOTINE POLACRILEX 2 MG GUM BUC PRN ×2 (20:12→22:39)
[2019-07-28] MEDS: THIAMINE HCL 100 MG TABLET (FP) PO SCH (22:37)
[2019-07-29] MEDS: chlordiazePOXIDE HCL 25 MG CAPSULE PO SCH ×4 (06:23→22:15)
[2019-07-29] MEDS: BISMUTH SUBSALICYLATE 524 MG/30 ML UD PO PRN ×2 (06:25→22:18)
[2019-07-29 09:37] LABS: HEMATOCRIT 36.3 % (35.4-49); MCH 29.7 pg (25.7-33.7); MCHC 33.1 g/dl (32.0-35.9); MEAN CELL VOLUME 89.7 fl (80-96); MEAN PLT VOLUME 9.3 fl (7.5-11.1); PLATELET COUNT 159 K/MM3 (134-434); RBC 4.05 M/mm3 (4.00-5.60); RDW 14.5 % (11.9-15.9); WHITE BLOOD COUNT 3.4 K/mm3 (4.0-10.0)
[2019-07-29 09:49] LABS: ALBUMIN 3.4 g/dl (3.4-5.0); BILIRUBIN,TOTAL 0.6 mg/dL (0.2-1); BLOOD UREA NITROGEN 11.3 mg/dL (7-18); CALCIUM 8.8 mg/dL (8.5-10.1); CREATININE 0.9 mg/dL (0.55-1.3); POTASSIUM 3.3 mmol/L (3.5-5.1); TOT PROT 6.9 g/dl (6.4-8.2)
--- NOTE | 2019-07-29 10:04 | PN ---
[facility] CIWA - CIWA Score Nausea/Vomitin-No Nausea/No Vomiting Muscle Tremors: 2 Anxiety: 3 Agitation: 0-Normal Activity Paroxysmal Sweats: 3 Orientation: 0-Oriented Tacttile Disturbances: 2-Mild Itch/Numbness/Burn Auditory Disturbances: 0-None Visual Disturbances: 0-None Headache: 1-Very Mild CIWA-Ar Total Score: 11 S Progress Note (SOAP) Subjective: c/o anxiety, b/l legs pain, sweats, shakes, and headache. Objective: 07/29/19 09:59 Vital Signs 07/29/19 07/29/19 07/29/19 03:30 07:23 08:56 Temperature 98.5 F 98.2 F Pulse Rate 77 84 Respiratory 18 18 18 Rate Blood Pressure 146/85 154/82 Laboratory Last Values WBC 3.4 K/mm3 (4.0-10.0) L 07/29/19 07:00 RBC 4.05 M/mm3 (4.00-5.60) 07/29/19 07:00 Hgb 12.0 GM/dL (11.7-16.9) 07/29/19 07:00 Hct 36.3 % (35.4-49) 07/29/19 07:00 MCV 89.7 fl (80-96) 07/29/19 07:00 MCH 29.7 pg (25.7-33.7) 07/29/19 07:00 MCHC 33.1 g/dl (32.0-35.9) 07/29/19 07:00 RDW 14.5 % (11.9-15.9) 07/29/19 07:00 Plt Count 159 K/MM3 (134-434) 07/29/19 07:00 MPV 9.3 fl (7.5-11.1) 07/29/19 07:00 Sodium 139 mmol/L (136-145) 07/29/19 07:00 Potassium 3.3 mmol/L (3.5-5.1) L 07/29/19 07:00 Chloride 103 mmol/L (98-107) 07/29/19 07:00 Carbon Dioxide 30 mmol/L (21-32) 07/29/19 07:00 Anion Gap 5 MMOL/L (8-16) L 07/29/19 07:00 BUN 11.3 mg/dL (7-18) 07/29/19 07:00 Creatinine 0.9 mg/dL (0.55-1.3) 07/29/19 07:00 Est GFR (CKD-EPI)AfAm 104.24 07/29/19 07:00 Est GFR (CKD-EPI)NonAf 89.94 07/29/19 07:00 POC Glucometer 141 UNITS (80-120) 07/29/19 06:22 Random Glucose 118 mg/dL (74-106) H 07/29/19 07:00 Calcium 8.8 mg/dL (8.5-10.1) 07/29/19 07:00 Total Bilirubin 0.6 mg/dL (0.2-1) 07/29/19 07:00 AST 37 U/L (15-37) 07/29/19 07:00 ALT 30 U/L (13-61) 07/29/19 07:00 Alkaline Phosphatase 120 U/L (45-117) H 07/29/19 07:00 Total Protein 6.9 g/dl (6.4-8.2) 07/29/19 07:00 Albumin 3.4 g/dl (3.4-5.0) 07/29/19 07:00 Labs noted with low k+ level. Assessment: 07/29/19 10:00 AOX3, in no acute respiratory distress. Full ROM, ambulating in the unit. Withdrawal symptoms. Hypokalemia. Plan: continue detox. Potassium chloride 40meq po x2 doses, 4hrs apart. Repeat k+ level in AM.
[2019-07-29] MEDS: PRENATAL VITAMINS W/ FOLIC ACID TABLET (FP) PO SCH (10:12)
[2019-07-29] MEDS: NICOTINE POLACRILEX 2 MG GUM BUC PRN ×3 (10:15→22:18)
[2019-07-29] MEDS: NICOTINE 14 MG/24 HOURS TOPICAL PATCH TD SCH (10:15)
[2019-07-29] MEDS ORDERED: POTASSIUM CHLORIDE TABS 20 MEQ TABLET.ER (FP) PO ONE ×2 (10:30→16:00)
--- NOTE | 2019-07-29 10:35 | EKG ---
Test Reason : Blood Pressure : / mmHG Vent. Rate : 082 BPM Atrial Rate : 082 BPM P-R Int : 162 ms QRS Dur : 086 ms QT Int : 398 ms P-R-T Axes : 059 -32 019 degrees QTc Int : 464 ms NORMAL SINUS RHYTHM LEFT AXIS DEVIATION INFERIOR INFARCT , AGE UNDETERMINED ABNORMAL ECG WHEN COMPARED WITH ECG OF 28-MAY-2018 09:57, NO SIGNIFICANT CHANGE WAS FOUND Confirmed by YANDEL EVANS, CHERELLE ([id number]) on 07/29/2019 10:35:42 AM Referred By: MARIA TERESA BLOUNT Confirmed By:CHERELLE HUMPHRIES MD
--- NOTE | 2019-07-29 12:10 | CONSULT ---
[facility] Psychiatric Consult - Data Date of interview: 07/29/19 Admission source: [facility] Identifying data: Patient is approached for psychiatric interview. " I need a medical doctor. Not a psychiatrist. I don't need to talk to you. Get my medical doctor." Mr Mills declines psychiatric evaluation. Nursing is made aware.
--- NOTE | 2019-07-29 14:49 | PN ---
[facility] Progress Note Note: Pt's pharmacy ([facility]) was contacted via ([phone]) and as per pharmacist pt has 14days refills on the following medication. Gabapentin 400mg po tid omeprazole 40mg po daily aspirin 81mg po daily Albuterol IHN 2puffs Q4hrs as needed januvia 100mg po daily oxybutynin 5mg po daily. Pt was previously on metoprolol 25mg po twice/day but the last refill was last year. Will start metoprolol 25mg po twice/day for now.
[2019-07-29] MEDS ORDERED: ALBUTEROL SO4 HFA INHALER IH PRN (14:53)
[2019-07-29] MEDS: PANTOPRAZOLE 40 MG TABLET PO SCH (15:19)
[2019-07-29] MEDS: OXYBUTYNIN CHLORIDE 5 MG TABLET PO SCH (15:33)
[2019-07-29] MEDS: GABAPENTIN 400 MG CAPSULE PO SCH (22:15)
[2019-07-29] MEDS: METOPROLOL TARTRATE 25 MG TABLET (FP) PO SCH (22:15)
[2019-07-29] MEDS: THIAMINE HCL 100 MG TABLET (FP) PO SCH (22:15)
[2019-07-29] MEDS: MELATONIN 5 MG TABLETS PO PRN (22:17)
[2019-07-30] MEDS: GABAPENTIN 400 MG CAPSULE PO SCH ×3 (05:36→22:08)
[2019-07-30] MEDS: chlordiazePOXIDE HCL 25 MG CAPSULE PO SCH ×4 (05:36→22:08)
[2019-07-30] MEDS: NICOTINE POLACRILEX 2 MG GUM BUC PRN ×6 (05:38→22:10)
[2019-07-30] MEDS: OXYBUTYNIN CHLORIDE 5 MG TABLET PO SCH (10:06)
[2019-07-30] MEDS: PANTOPRAZOLE 40 MG TABLET PO SCH (10:06)
[2019-07-30] MEDS: ASPIRIN 81 MG CHEWABLE TABLETS PO SCH (10:06)
[2019-07-30] MEDS: PRENATAL VITAMINS W/ FOLIC ACID TABLET (FP) PO SCH (10:06)
[2019-07-30] MEDS: NICOTINE 14 MG/24 HOURS TOPICAL PATCH TD SCH (10:08)
[2019-07-30] MEDS: METOPROLOL TARTRATE 25 MG TABLET (FP) PO SCH ×2 (10:54→22:08)
--- NOTE | 2019-07-30 12:01 | PN ---
S CIWA - CIWA Score Nausea/Vomitin-No Nausea/No Vomiting Muscle Tremors: 3 Anxiety: 4-Mod. Anxious/Guarded Agitation: 1-Slight > Activity Paroxysmal Sweats: 2 Orientation: 0-Oriented Tacttile Disturbances: 0-None Auditory Disturbances: 0-None Visual Disturbances: 0-None Headache: 0-None Present CIWA-Ar Total Score: 10 S Progress Note (SOAP) Subjective: 64 years old male admitted on 07/28/19 for alcohol withdrawal sx management treating with librium ddetox regiment Mr Mills states that he has long history of anxiety depression and bipolar treated with klonopin po daily IStop no information on klonopin patient insists to be seen by a psychiatrist psychiatrist referral Objective: 07/30/19 12:00 Vital Signs Temperature 96.9 F L 07/30/19 08:47 Pulse Rate 79 07/30/19 08:47 Respiratory Rate 18 07/30/19 08:47 Blood Pressure 143/85 07/30/19 08:47 O2 Sat by Pulse Oximetry (%) Laboratory Last Values WBC 3.4 K/mm3 (4.0-10.0) L 07/29/19 07:00 RBC 4.05 M/mm3 (4.00-5.60) 07/29/19 07:00 Hgb 12.0 GM/dL (11.7-16.9) 07/29/19 07:00 Hct 36.3 % (35.4-49) 07/29/19 07:00 MCV 89.7 fl (80-96) 07/29/19 07:00 MCH 29.7 pg (25.7-33.7) 07/29/19 07:00 MCHC 33.1 g/dl (32.0-35.9) 07/29/19 07:00 RDW 14.5 % (11.9-15.9) 07/29/19 07:00 Plt Count 159 K/MM3 (134-434) 07/29/19 07:00 MPV 9.3 fl (7.5-11.1) 07/29/19 07:00 Sodium 139 mmol/L (136-145) 07/29/19 07:00 Potassium 4.3 mmol/L (3.5-5.1) 07/30/19 07:10 Chloride 103 mmol/L (98-107) 07/29/19 07:00 Carbon Dioxide 30 mmol/L (21-32) 07/29/19 07:00 Anion Gap 5 MMOL/L (8-16) L 07/29/19 07:00 BUN 11.3 mg/dL (7-18) 07/29/19 07:00 Creatinine 0.9 mg/dL (0.55-1.3) 07/29/19 07:00 Est GFR (CKD-EPI)AfAm 104.24 07/29/19 07:00 Est GFR (CKD-EPI)NonAf 89.94 07/29/19 07:00 POC Glucometer 185 UNITS (80-120) 07/30/19 05:35 Random Glucose 118 mg/dL (74-106) H 07/29/19 07:00 Calcium 8.8 mg/dL (8.5-10.1) 07/29/19 07:00 Total Bilirubin 0.6 mg/dL (0.2-1) 07/29/19 07:00 AST 37 U/L (15-37) 07/29/19 07:00 ALT 30 U/L (13-61) 07/29/19 07:00 Alkaline Phosphatase 120 U/L (45-117) H 07/29/19 07:00 Total Protein 6.9 g/dl (6.4-8.2) 07/29/19 07:00 Albumin 3.4 g/dl (3.4-5.0) 07/29/19 07:00 RPR Titer Nonreactive (NONREACTIVE) 07/29/19 07:00 lab noted Assessment: 07/30/19 12:00 alcohol withdrawal Plan: librium regiment
[2019-07-30] MEDS: chlordiazePOXIDE HCL 10 MG CAPSULE PO PRN ×2 (13:17→19:52)
--- NOTE | 2019-07-30 15:48 | CONSULT ---
[facility] Psychiatric Consult - Data Date of interview: 07/30/19 Admission source: Self-referred Identifying data: Mr Mills is a 64 years old single Black male, father of 3 daughters, unemployed receving SSI, domiciled seeking detox treatment for alcohol and cocaine Substance Abuse History: Reports history of alcohol and cocaine use. refer to addiction counselor's summary for further information Medical History: Significant for bronchial asthma, hypertension, dyslipidemia, type 2 diabetes mellitus, diabetic neuropathy, GERD, benigh prostatic hyperplasia, history of anemia, treatment for hepatitis C, syphilis and surgery for right inguinal herniorraphy in the . Smokes 10 cigarettes daily Psychiatric History: Patient is known for multiple previous admissions to this facility. Historical narrative remains consistent. He reports that his first psychiatric contact occured more than 15 years ago when he was admitted to [facility], diagnosed with Paranoid Schizophrenia and started on psychotrpic medications. Reports multiple subsequent psychiaric hospitalizations at [facility] and [facility]. Reports ythat his most recent admission was in 2019. Reports that he currently receives outpatient psychiatric treatment at [facility] and he is prescribed Seroquel 50 mg/hs and another medication for anxiety. He only recalls that that medication star with C. He has a history of non-compliance with OPD care and medications. Reports having been on Risperdal, Cogentin, Celexa in the past. Denies previous suicide attempts. At present, denies experiencing psychotic symptoms, S/H ideations. However reports feeling anxious, irritable and sleeping Physical/Sexual Abuse/Trauma History: Denies history of emotional, physical or sexual abuse, but reports being bullied as a child by peers in school. Served in the [employer] from to , in [place]; received dishonorable discharge for drinking, drug use, leaving AWOL. Additional Comment: Reports history of multiple previous arrests including one felony conviction Mental Status Exam - Mental Status Exam Alert and Oriented to: Time, Place, Person Cognitive Function: Fair Mood: Depressed, Anxious, Irritable Affect: Appropriate Speech Pattern: Clear Voice Loudness: Normal Thought Process: Intact Hallucinations: Denies Suicidal Ideation: Denies Homicidal Ideation: Denies Insight/Judgement: Poor Sleep: Poorly Appetite: Good Muscle strength/Tone: Normal Gait/Station: Normal Psychiatric Findings - Problem List ([place] 1, 2,3) (1) Paranoid schizophrenia Current Visit: No Status: Chronic Comment: Refuses to accept medications. (2) Substance induced mood disorder Current Visit: Yes Status: Acute (3) Substance-induced sleep disorder Current Visit: Yes Status: Acute (4) Alcohol dependence with uncomplicated withdrawal Current Visit: Yes Status: Acute (5) Cocaine dependence Current Visit: No Status: Acute (6) Nicotine dependence Current Visit: Yes Status: Chronic Qualifiers: Nicotine product type: cigarettes Substance use status: in withdrawal Qualified Code(s): F17.213 - Nicotine dependence, cigarettes, with withdrawal (7) Anemia Current Visit: Yes Status: Resolved Qualifiers: Anemia type: unspecified type Qualified Code(s): D64.9 - Anemia, unspecified (8) Asthma Current Visit: Yes Status: Chronic Qualifiers: Asthma severity: moderate Asthma persistence: unspecified Asthma complication type: unspecified Qualified Code(s): J45.909 - Unspecified asthma , uncomplicated (9) COPD (chronic obstructive pulmonary disease) Current Visit: Yes Status: Chronic Qualifiers: COPD type: emphysema Emphysema type: unilateral Qualified Code(s): J43.0 - Unilateral pulmonary emphysema [MacLeod's syndrome] (10) BPH (benign prostatic hyperplasia) Current Visit: Yes Status: Chronic Qualifiers: Lower urinary tract symptom presence: unspecified whether lower urinary tract symptoms present Qualified Code(s): N40.0 - Benign prostatic hyperplasia without lower urinary tract symptoms (11) DM type 2 (diabetes mellitus, type 2) Current Visit: Yes Status: Chronic Qualifiers: Diabetes mellitus complication status: with unspecified complications (12) GERD (gastroesophageal reflux disease) Current Visit: Yes Status: Chronic Qualifiers: Esophagitis presence: esophagitis presence not specified Qualified Code(s) : K21.9 - Gastro-esophageal reflux disease without esophagitis (13) HTN (hypertension) Current Visit: Yes Status: Chronic Qualifiers: Hypertension type: essential hypertension Qualified Code(s): I10 - Essential (primary) hypertension (14) Hepatitis C Current Visit: Yes Status: Chronic Qualifiers: Viral hepatitis chronicity: unspecified Hepatic coma status: without hepatic coma Qualified Code(s): B19.20 - Unspecified viral hepatitis C without hepatic coma (15) Hypercholesterolemia Current Visit: Yes Status: Chronic - Initial Treatment Plan Initial Treatment Plan: 1) Continue Seroquel 50 mg po HS. 2) [facility] [phone]. No answer. 3) Continue inpatient detoxification
[2019-07-30] MEDS: hydrOXYzine PAMOATE 25 MG CAPSULE (FP) PO PRN (16:59)
[2019-07-30] MEDS: THIAMINE HCL 100 MG TABLET (FP) PO SCH (22:08)
[2019-07-30] MEDS: QUEtiapine FUMARATE 50 MG TABLET PO SCH (22:08)
[2019-07-30] MEDS: MELATONIN 5 MG TABLETS PO PRN (22:08)
[2019-07-31] MEDS: GABAPENTIN 400 MG CAPSULE PO SCH ×3 (05:47→22:07)
[2019-07-31] MEDS: chlordiazePOXIDE HCL 10 MG CAPSULE PO SCH ×4 (05:47→22:07)
--- NOTE | 2019-07-31 09:34 | PN ---
S CIWA - CIWA Score Nausea/Vomitin-No Nausea/No Vomiting Muscle Tremors: 2 Anxiety: 2 Agitation: 0-Normal Activity Paroxysmal Sweats: 1-Minimal Palms Moist Orientation: 0-Oriented Tacttile Disturbances: 0-None Auditory Disturbances: 0-None Visual Disturbances: 1-Very Mild Sensitivity Headache: 0-None Present CIWA-Ar Total Score: 6 BHS Progress Note (SOAP) Subjective: 64 years old male admitted on 07/28/19 for alcohol withdrawal sx management treating with librium detox regiment patient requests to be seen by a psychiatrist for anxiety depression and bipolar treated with Klonopine patient demands Klonopin while in detox due to "prescribed" monthly by the psychiatrist and taking daily at home reports diarrhea x 1 imodium 4 mg po x 1 Objective: 07/31/19 09:35 Vital Signs Temperature 97.0 F L 07/31/19 08:52 Pulse Rate 91 H 07/31/19 08:52 Respiratory Rate 18 07/31/19 08:52 Blood Pressure 133/75 07/31/19 08:52 O2 Sat by Pulse Oximetry (%) Laboratory Last Values WBC 3.4 K/mm3 (4.0-10.0) L 07/29/19 07:00 RBC 4.05 M/mm3 (4.00-5.60) 07/29/19 07:00 Hgb 12.0 GM/dL (11.7-16.9) 07/29/19 07:00 Hct 36.3 % (35.4-49) 07/29/19 07:00 MCV 89.7 fl (80-96) 07/29/19 07:00 MCH 29.7 pg (25.7-33.7) 07/29/19 07:00 MCHC 33.1 g/dl (32.0-35.9) 07/29/19 07:00 RDW 14.5 % (11.9-15.9) 07/29/19 07:00 Plt Count 159 K/MM3 (134-434) 07/29/19 07:00 MPV 9.3 fl (7.5-11.1) 07/29/19 07:00 Sodium 139 mmol/L (136-145) 07/29/19 07:00 Potassium 4.3 mmol/L (3.5-5.1) 07/30/19 07:10 Chloride 103 mmol/L (98-107) 07/29/19 07:00 Carbon Dioxide 30 mmol/L (21-32) 07/29/19 07:00 Anion Gap 5 MMOL/L (8-16) L 07/29/19 07:00 BUN 11.3 mg/dL (7-18) 07/29/19 07:00 Creatinine 0.9 mg/dL (0.55-1.3) 07/29/19 07:00 Est GFR (CKD-EPI)AfAm 104.24 07/29/19 07:00 Est GFR (CKD-EPI)NonAf 89.94 07/29/19 07:00 POC Glucometer 226 UNITS (80-120) 07/31/19 05:49 Random Glucose 118 mg/dL (74-106) H 07/29/19 07:00 Calcium 8.8 mg/dL (8.5-10.1) 07/29/19 07:00 Total Bilirubin 0.6 mg/dL (0.2-1) 07/29/19 07:00 AST 37 U/L (15-37) 07/29/19 07:00 ALT 30 U/L (13-61) 07/29/19 07:00 Alkaline Phosphatase 120 U/L (45-117) H 07/29/19 07:00 Total Protein 6.9 g/dl (6.4-8.2) 07/29/19 07:00 Albumin 3.4 g/dl (3.4-5.0) 07/29/19 07:00 RPR Titer Nonreactive (NONREACTIVE) 07/29/19 07:00 lab noted Assessment: 07/31/19 09:35 alcohol withdrawal Plan: librium regiment
[2019-07-31] MEDS ORDERED: LOPERAMIDE HCL 2 MG CAPSULE PO ONE (10:02)
[2019-07-31] MEDS: METOPROLOL TARTRATE 25 MG TABLET (FP) PO SCH ×2 (10:26→22:07)
[2019-07-31] MEDS: PANTOPRAZOLE 40 MG TABLET PO SCH (10:26)
[2019-07-31] MEDS: NICOTINE 14 MG/24 HOURS TOPICAL PATCH TD SCH (10:26)
[2019-07-31] MEDS: PRENATAL VITAMINS W/ FOLIC ACID TABLET (FP) PO SCH (10:26)
[2019-07-31] MEDS: ASPIRIN 81 MG CHEWABLE TABLETS PO SCH (10:26)
[2019-07-31] MEDS: OXYBUTYNIN CHLORIDE 5 MG TABLET PO SCH (10:26)
[2019-07-31] MEDS: NICOTINE POLACRILEX 2 MG GUM BUC PRN ×3 (10:26→21:50)
[2019-07-31] MEDS: METHOCARBAMOL 500 MG TABLET PO PRN ×2 (13:22→22:08)
[2019-07-31] MEDS: chlordiazePOXIDE HCL 10 MG CAPSULE PO PRN (14:31)
--- NOTE | 2019-07-31 16:55 | PN ---
[facility] Progress Note Note: JITENDRA Blackburn notified provider, blood sugar 324. On Januvia 100mg daily. Will add sliding scale BID AC. Vital Signs Temperature 96.5 F L 07/31/19 12:28 Pulse Rate 82 07/31/19 12:28 Respiratory Rate 18 07/31/19 12:28 Blood Pressure 133/83 07/31/19 12:28 O2 Sat by Pulse Oximetry (%)
[2019-07-31] MEDS: hydrOXYzine PAMOATE 25 MG CAPSULE (FP) PO PRN (17:05)
[2019-07-31] MEDS: INSULIN SLIDING SCALE (NOVOLOG) 1 VIAL SQ SCH (17:10)
[2019-07-31] MEDS: QUEtiapine FUMARATE 50 MG TABLET PO SCH (22:07)
[2019-07-31] MEDS: MELATONIN 5 MG TABLETS PO PRN (22:07)
[2019-07-31] MEDS: THIAMINE HCL 100 MG TABLET (FP) PO SCH (22:07)
[2019-07-31] MEDS: BISMUTH SUBSALICYLATE 524 MG/30 ML UD PO PRN (22:10)
[2019-08-01] MEDS: chlordiazePOXIDE HCL 10 MG CAPSULE PO SCH ×2 (05:31→17:16)
[2019-08-01] MEDS: GABAPENTIN 400 MG CAPSULE PO SCH ×3 (05:31→22:00)
[2019-08-01] MEDS: BISMUTH SUBSALICYLATE 524 MG/30 ML UD PO PRN (05:54)
[2019-08-01] MEDS ORDERED: INSULIN SLIDING SCALE (NOVOLOG) 1 VIAL SQ ONE (06:25)
[2019-08-01] MEDS: INSULIN SLIDING SCALE (NOVOLOG) 1 VIAL SQ SCH ×2 (06:39→16:47)
--- NOTE | 2019-08-01 07:32 | PN ---
[facility] Progress Note Note: Patient complained of diarrhea Vital Signs Temperature 98.2 F 08/01/19 06:37 Pulse Rate 80 08/01/19 06:37 Respiratory Rate 18 08/01/19 06:37 Blood Pressure 133/79 08/01/19 06:37 O2 Sat by Pulse Oximetry (%) Action: Loperamide HCL (Imodium) 4mg oral ordered
[2019-08-01] MEDS ORDERED: LOPERAMIDE HCL 2 MG CAPSULE PO ONE (08:00)
[2019-08-01] MEDS: PRENATAL VITAMINS W/ FOLIC ACID TABLET (FP) PO SCH (09:58)
[2019-08-01] MEDS: OXYBUTYNIN CHLORIDE 5 MG TABLET PO SCH (09:58)
[2019-08-01] MEDS: ASPIRIN 81 MG CHEWABLE TABLETS PO SCH (09:58)
[2019-08-01] MEDS: PANTOPRAZOLE 40 MG TABLET PO SCH (09:58)
[2019-08-01] MEDS: chlordiazePOXIDE HCL 10 MG CAPSULE PO PRN ×2 (10:01→22:02)
[2019-08-01] MEDS: NICOTINE POLACRILEX 2 MG GUM BUC PRN ×4 (10:02→22:04)
[2019-08-01] MEDS: NICOTINE 14 MG/24 HOURS TOPICAL PATCH TD SCH (10:50)
--- NOTE | 2019-08-01 11:21 | PN ---
S CIWA - CIWA Score Nausea/Vomitin-No Nausea/No Vomiting Muscle Tremors: 1-None Visible, but [place] Anxiety: 2 Agitation: 0-Normal Activity Paroxysmal Sweats: No Perspiration Orientation: 0-Oriented Tacttile Disturbances: 0-None Auditory Disturbances: 0-None Visual Disturbances: 0-None Headache: 0-None Present CIWA-Ar Total Score: 3 BHS Progress Note (SOAP) Subjective: 64 years old male admitted on 07/28/19 for alcohol withdrawal sx management treating with librium detox regiment long history of diabetes hypertension follow up with [facility] primary care provider current serum glucose elevation with diarrhea begin insulin sliding scale with coverage and imodium stat with lomotil x 1 Objective: 08/01/19 11:21 Vital Signs Temperature 96 F L 08/01/19 09:02 Pulse Rate 86 08/01/19 09:02 Respiratory Rate 18 08/01/19 09:02 Blood Pressure 98/60 08/01/19 09:02 O2 Sat by Pulse Oximetry (%) Laboratory Last Values WBC 3.4 K/mm3 (4.0-10.0) L 07/29/19 07:00 RBC 4.05 M/mm3 (4.00-5.60) 07/29/19 07:00 Hgb 12.0 GM/dL (11.7-16.9) 07/29/19 07:00 Hct 36.3 % (35.4-49) 07/29/19 07:00 MCV 89.7 fl (80-96) 07/29/19 07:00 MCH 29.7 pg (25.7-33.7) 07/29/19 07:00 MCHC 33.1 g/dl (32.0-35.9) 07/29/19 07:00 RDW 14.5 % (11.9-15.9) 07/29/19 07:00 Plt Count 159 K/MM3 (134-434) 07/29/19 07:00 MPV 9.3 fl (7.5-11.1) 07/29/19 07:00 Sodium 139 mmol/L (136-145) 07/29/19 07:00 Potassium 4.3 mmol/L (3.5-5.1) 07/30/19 07:10 Chloride 103 mmol/L (98-107) 07/29/19 07:00 Carbon Dioxide 30 mmol/L (21-32) 07/29/19 07:00 Anion Gap 5 MMOL/L (8-16) L 07/29/19 07:00 BUN 11.3 mg/dL (7-18) 07/29/19 07:00 Creatinine 0.9 mg/dL (0.55-1.3) 07/29/19 07:00 Est GFR (CKD-EPI)AfAm 104.24 07/29/19 07:00 Est GFR (CKD-EPI)NonAf 89.94 07/29/19 07:00 POC Glucometer 314 UNITS (80-120) 08/01/19 05:30 Random Glucose 118 mg/dL (74-106) H 07/29/19 07:00 Calcium 8.8 mg/dL (8.5-10.1) 07/29/19 07:00 Total Bilirubin 0.6 mg/dL (0.2-1) 07/29/19 07:00 AST 37 U/L (15-37) 07/29/19 07:00 ALT 30 U/L (13-61) 07/29/19 07:00 Alkaline Phosphatase 120 U/L (45-117) H 07/29/19 07:00 Total Protein 6.9 g/dl (6.4-8.2) 07/29/19 07:00 Albumin 3.4 g/dl (3.4-5.0) 07/29/19 07:00 RPR Titer Nonreactive (NONREACTIVE) 07/29/19 07:00 lab noted 08/01/19 11:24 low bp hold home medication proscar and nifedipine Assessment: 08/01/19 11:24 alcohol withdrawal Plan: librium regiment
[2019-08-01] MEDS: METOPROLOL TARTRATE 25 MG TABLET (FP) PO SCH ×3 (11:56→22:01)
[2019-08-01] MEDS: hydrOXYzine PAMOATE 25 MG CAPSULE (FP) PO PRN ×2 (11:56→19:27)
[2019-08-01] MEDS ORDERED: DIPHENOXYLATE 2.5/ATROPINE.025 1 COMBO TABLET PO ONE (17:00)
[2019-08-01] MEDS: MELATONIN 5 MG TABLETS PO PRN (21:59)
[2019-08-01] MEDS: THIAMINE HCL 100 MG TABLET (FP) PO SCH (22:00)
[2019-08-01] MEDS: QUEtiapine FUMARATE 50 MG TABLET PO SCH (22:01)
[2019-08-02] MEDS ORDERED: chlordiazePOXIDE HCL 10 MG CAPSULE PO ONE (05:00)
[2019-08-02] MEDS: GABAPENTIN 400 MG CAPSULE PO SCH (06:01)
[2019-08-02] MEDS: INSULIN SLIDING SCALE (NOVOLOG) 1 VIAL SQ SCH (06:04)
[2019-08-02] MEDS: NICOTINE POLACRILEX 2 MG GUM BUC PRN (06:08)
[2019-08-02] MEDS: hydrOXYzine PAMOATE 25 MG CAPSULE (FP) PO PRN (06:09)
[2019-08-02 06:43] VITALS: BP 139/85; PULSE 83; TEMP 97
--- NOTE | 2019-08-02 08:55 | DS ---
[facility] Detox Discharge Summary Admission Date: 07/28/19 Discharge Date: 08/02/19 - History Present History: Alcohol Dependence Additional Comments: 64 years old male admitted on 07/28/19 for alcohol withdrawal sx management treated with librium detox regiment Mr Mills has completed the librium regiment and tolerated well seen by psychiatrist resume seroquel alert oriented x 3 cardiac s1s2 regular rate rhythm ekg indicated inferior infarct asymptomatic no chest pain no dizziness no shortness of breath respiratory clear lungs bilaterally on auscultation extremities full range of motion Pertinent Past History: time for discharge 31 minutes - Physical Exam Results Vital Signs: Vital Signs Temperature 97.0 F L 08/02/19 06:42 Pulse Rate 83 08/02/19 06:42 Respiratory Rate 18 08/02/19 06:42 Blood Pressure 139/85 08/02/19 06:42 O2 Sat by Pulse Oximetry (%) Pertinent Admission Physical Exam Findings: alcohol withdrawal Laboratory Last Values WBC 3.4 K/mm3 (4.0-10.0) L 07/29/19 07:00 RBC 4.05 M/mm3 (4.00-5.60) 07/29/19 07:00 Hgb 12.0 GM/dL (11.7-16.9) 07/29/19 07:00 Hct 36.3 % (35.4-49) 07/29/19 07:00 MCV 89.7 fl (80-96) 07/29/19 07:00 MCH 29.7 pg (25.7-33.7) 07/29/19 07:00 MCHC 33.1 g/dl (32.0-35.9) 07/29/19 07:00 RDW 14.5 % (11.9-15.9) 07/29/19 07:00 Plt Count 159 K/MM3 (134-434) 07/29/19 07:00 MPV 9.3 fl (7.5-11.1) 07/29/19 07:00 Sodium 139 mmol/L (136-145) 07/29/19 07:00 Potassium 4.3 mmol/L (3.5-5.1) 07/30/19 07:10 Chloride 103 mmol/L (98-107) 07/29/19 07:00 Carbon Dioxide 30 mmol/L (21-32) 07/29/19 07:00 Anion Gap 5 MMOL/L (8-16) L 07/29/19 07:00 BUN 11.3 mg/dL (7-18) 07/29/19 07:00 Creatinine 0.9 mg/dL (0.55-1.3) 07/29/19 07:00 Est GFR (CKD-EPI)AfAm 104.24 07/29/19 07:00 Est GFR (CKD-EPI)NonAf 89.94 07/29/19 07:00 POC Glucometer 384 UNITS (80-120) 08/02/19 06:00 Random Glucose 118 mg/dL (74-106) H 07/29/19 07:00 Calcium 8.8 mg/dL (8.5-10.1) 07/29/19 07:00 Total Bilirubin 0.6 mg/dL (0.2-1) 07/29/19 07:00 AST 37 U/L (15-37) 07/29/19 07:00 ALT 30 U/L (13-61) 07/29/19 07:00 Alkaline Phosphatase 120 U/L (45-117) H 07/29/19 07:00 Total Protein 6.9 g/dl (6.4-8.2) 07/29/19 07:00 Albumin 3.4 g/dl (3.4-5.0) 07/29/19 07:00 RPR Titer Nonreactive (NONREACTIVE) 07/29/19 07:00 lab noted - Treatment Hospital Course: Detox Protocol Followed, Detoxed Safely, Responded well, Discharged Condition Good, Rehab Referral Accepted Patient has Accepted a Rehab Referral to: [facility] - Medication Discharge Medications: Ambulatory Orders Albuterol Sulfate Inhaler - [Ventolin HFA Inhaler -] 2 inh IH Q4H PRN 05/08/16 Aspirin [Aspirin EC] 81 mg PO DAILY 01/19/18 Glipizide [Glucotrol -] 10 mg PO BID 01/19/18 Albuterol Sulfate Inhaler - [Ventolin HFA Inhaler -] 2 puff IH Q4H PRN #1 inhaler 02/03/18 Atorvastatin Ca [Lipitor] 40 mg PO HS #30 tablet 02/03/18 Budesonide/Formeterol Fumarate [SYMBICORT 160/4.5mcg -] 2 puff IH BID #1 inhaler 02/03/18 Finasteride [Proscar -] 5 mg PO DAILY #30 tablet 02/03/18 Gabapentin [Neurontin -] 600 mg PO TID #21 capsule 02/03/18 Nifedipine ER [Procardia XL -] 30 mg PO DAILY #30 tab.er.24 02/03/18 Thiamine HCl [Vitamin B1 -] 100 mg PO HS #30 tablet 02/03/18 Metoprolol Tartrate 25 mg PO BID 05/27/18 Omeprazole 20 mg PO DAILY 05/27/18 Glipizide [Glucotrol -] 10 mg PO BID@0700,1630 #60 tablet 06/01/18 Sitagliptin Phosphate [Januvia -] 100 mg PO DAILY@0700 #30 tablet 06/01/18 - Diagnosis (1) Alcohol dependence with uncomplicated withdrawal Status: Acute (2) Substance induced mood disorder Status: Suspected (3) Asthma Status: Chronic Qualifiers: Asthma severity: mild Asthma persistence: intermittent Asthma complication type: unspecified Qualified Code(s): J45.20 - Mild intermittent asthma, uncomplicated (4) BPH (benign prostatic hyperplasia) Status: Chronic Qualifiers: Lower urinary tract symptom presence: symptoms absent Qualified Code(s): N40.0 - Benign prostatic hyperplasia without lower urinary tract symptoms (5) COPD (chronic obstructive pulmonary disease) Status: Chronic Qualifiers: COPD type: emphysema Emphysema type: unilateral Qualified Code(s): J43.0 - Unilateral pulmonary emphysema [MacLeod's syndrome] (6) DM type 2 (diabetes mellitus, type 2) Status: Chronic Qualifiers: Diabetes mellitus complication status: with other specified complication (7) Diabetes mellitus Status: Chronic Qualifiers: Diabetes mellitus type: type 2 Diabetes mellitus long term care pharmacist insulin use: without long term care pharmacist use Diabetes mellitus complication status: with other specified complication Qualified Code(s): E11.69 - Type 2 diabetes mellitus with other specified complication (8) GERD (gastroesophageal reflux disease) Status: Chronic Qualifiers: Esophagitis presence: without esophagitis Qualified Code(s): K21.9 - Gastro -esophageal reflux disease without esophagitis (9) HTN (hypertension) Status: Chronic Qualifiers: Hypertension type: essential hypertension Qualified Code(s): I10 - Essential (primary) hypertension (10) Hep C w/o coma, chronic Status: Chronic (11) Hepatitis C Status: Chronic Qualifiers: Viral hepatitis chronicity: unspecified Hepatic coma status: without hepatic coma Qualified Code(s): B19.20 - Unspecified viral hepatitis C without hepatic coma (12) Nicotine dependence Status: Acute Qualifiers: Nicotine product type: cigarettes Substance use status: in withdrawal Qualified Code(s): F17.213 - Nicotine dependence, cigarettes, with withdrawal - AMA Did Patient Leave Against Medical Advice: No CIWA Score - CIWA Score Nausea/Vomitin-No Nausea/No Vomiting Muscle Tremors: 1-None Visible, but [place] Anxiety: 1-Mildly Anxious Agitation: 0-Normal Activity Paroxysmal Sweats: No Perspiration Orientation: 0-Oriented Tacttile Disturbances: 0-None Auditory Disturbances: 0-None Visual Disturbances: 0-None Headache: 0-None Present CIWA-Ar Total Score: 2
[2019-08-02] MEDS: PANTOPRAZOLE 40 MG TABLET PO SCH (09:11)
[2019-08-02] MEDS: PRENATAL VITAMINS W/ FOLIC ACID TABLET (FP) PO SCH (09:11)
[2019-08-02] MEDS: ASPIRIN 81 MG CHEWABLE TABLETS PO SCH (09:11)
[2019-08-02] MEDS: METOPROLOL TARTRATE 25 MG TABLET (FP) PO SCH (09:11)
[2019-08-02] MEDS: OXYBUTYNIN CHLORIDE 5 MG TABLET PO SCH (09:11)
[2019-08-02] MEDS: BISMUTH SUBSALICYLATE 524 MG/30 ML UD PO PRN (09:12)
[2019-08-02] MEDS: NICOTINE 14 MG/24 HOURS TOPICAL PATCH TD SCH (09:15)
== END 2019-08-02 09:51 | disposition home or self-care (01) | DRG 774 ==
LOC: YASAS 15:19 → Y3N 18:13
PROVIDERS: ADMIT Allergy & Immunology; ATTEND Allergy & Immunology
PROC: HZ2ZZZZ Detoxification Services for Substance Abuse Treatment (ICD-10-PCS; principal; 2019-07-28)
DX: F10.230 Alcohol dependence with withdrawal, uncomplicated (principal); F14.20 Cocaine dependence, uncomplicated; F17.210 Nicotine dependence, cigarettes, uncomplicated; F19.282 Other psychoactive substance dependence with psychoactive substance-induced sleep disorder; F19.24 Other psychoactive substance dependence with psychoactive substance-induced mood disorder; F31.9 Bipolar disorder, unspecified; F20.0 Paranoid schizophrenia; F43.10 Post-traumatic stress disorder, unspecified; F41.8 Other specified anxiety disorders; I10 Essential (primary) hypertension; J45.20 Mild intermittent asthma, uncomplicated; E11.65 Type 2 diabetes mellitus with hyperglycemia; Z79.84 Long term (current) use of oral hypoglycemic drugs; E78.00 Pure hypercholesterolemia, unspecified; K21.9 Gastro-esophageal reflux disease without esophagitis; N40.0 Benign prostatic hyperplasia without lower urinary tract symptoms; D64.9 Anemia, unspecified; Z88.0 Allergy status to penicillin
CPT/HCPCS: 36415; 71046-TC-FY; 80053; 82962; 84132; 85027; 86593; 93005; 93010